=== PATIENT | female | born 1950 | race Hispanic/Latino ===

== ENCOUNTER → 2018-03-15 | Outpatient (CLI) | payer OTHER | END | disposition home or self-care (01) | LOC: OIH 13:03 | PROVIDERS: ATTEND Psychiatry & Neurology Neurology | DX: M50.321 Other cervical disc degeneration at C4-C5 level (principal); M47.892 Other spondylosis, cervical region | CPT/HCPCS: 72040 ==

== ENCOUNTER → 2025-05-07 | Outpatient (CLI) | payer OTHER, MEDICARE ==
--- NOTE | 2025-05-08 14:16 | HMCIMG ---
EXAM: MR Lumbar Spine Without Intravenous Contrast. CLINICAL HISTORY: Pain. TECHNIQUE: Magnetic resonance images of the lumbar spine in multiple planes. CONTRAST: None. COMPARISON: None. FINDINGS: For this examination, spinal levels were labeled assuming five non-rib bearing, lumbar-type vertebrae with the inferior labeled L5. No acute fracture. Normal lordotic curvature. Mild levoscoliosis. Normal vertebral body heights. Normal marrow signal of the vertebrae. Moderate lumbar spondylosis with multilevel marginal osteophytes, facet arthropathy, ligamentum flavum hypertrophy, disc desiccation and mild degenerative disc space reduction, most pronounced at L5-S1. Type I endplate changes at L3-L4. Conus medullaris terminates at the T12-L1 level. No abnormal epidural masses. The surrounding soft tissues are unremarkable. Individual spinal levels are described as follows: T12-L1: No disc bulge or herniation. No neural foraminal, lateral recess or spinal canal stenosis. L1-L2: 1-2 mm postero-central disc protrusion. No neural foraminal, lateral recess or spinal canal stenosis. L2-L3: 3 mm diffuse disc bulge. Mild bilateral lateral recess and neural foraminal stenosis. No spinal canal stenosis. Bilateral traversing nerve root impingement. L3-L4: 4 mm diffuse disc bulge and 4 mm right paracentral disc protrusion causing thecal sac indentation. Bilateral ligamentum flavum hypertrophy. Moderate right and mild left lateral recess stenosis. No neural foraminal or spinal canal stenosis. Bilateral traversing nerve root impingement. L4-L5: 5 mm diffuse disc bulge. Bilateral ligamentum flavum hypertrophy. Moderate bilateral lateral recess and mild bilateral neural foraminal stenosis. Mild spinal canal stenosis. Bilateral traversing nerve root impingement. L5-S1: 4 mm diffuse disc bulge with 4 mm left paracentral disc protrusion with small extruded disc material caudally and cranially. Mild right and moderate left lateral recess and neural foraminal stenosis. No spinal canal stenosis. Left S1 traversing and left S1 exiting nerve root impingement. IMPRESSION: Moderate lumbar spondylosis with multilevel marginal osteophytes, facet arthropathy, ligamentum flavum hypertrophy, disc desiccation and mild degenerative disc space reduction, most pronounced at L5-S1. Type I endplate changes at L3-L4. Mild levoscoliosis. Diffuse disc bulges from L2-L3 through L5-S1. 1-2 mm postero-central disc protrusion at L1-L2. 4 mm right paracentral disc protrusion at L3-L4. 4 mm left paracentral disc protrusion with small extruded disc material caudally and cranially. Mild bilateral lateral recess and neural foraminal stenosis at L2-L3 with bilateral traversing nerve root impingement. Moderate right and mild left lateral recess stenosis at L3-L4 with bilateral traversing nerve root impingement. Moderate bilateral lateral recess and mild neural foraminal stenosis at L4-L5 with mild spinal canal stenosis and bilateral traversing nerve root impingement. Mild right and moderate left lateral recess and neural foraminal stenosis at L5-S1 with left S1 traversing and left S1 exiting nerve root impingement. [facility]
== END | disposition home or self-care (01) ==
LOC: RAH 08:17
PROVIDERS: ATTEND Family Medicine
DX: M47.817 Spondylosis without myelopathy or radiculopathy, lumbosacral region (principal); M51.379 Other intervertebral disc degeneration, lumbosacral region without mention of lumbar back pain or lower extremity pain; M51.27 Other intervertebral disc displacement, lumbosacral region; M48.07 Spinal stenosis, lumbosacral region; M54.32 Sciatica, left side; M41.86 Other forms of scoliosis, lumbar region; M25.78 Osteophyte, vertebrae
CPT/HCPCS: 72148

== ENCOUNTER 2025-05-12 23:29 | Emergency (ER) | payer OTHER, MEDICARE ==
[~2025-05-12] VITALS: Ht 152.4 cm; Wt 52.2 kg
--- NOTE | 2025-05-12 23:40 | NUR ---
PT CARE ASSUMED AT THIS TIME
--- NOTE | 2025-05-12 23:53 | ERN ---
General Chief Complaint: Lower Extremity Pain/Injury Stated Complaint: LEFT LEG PAIN Time Seen by MD: 23:34 Source: patient History of Present Illness Initial Comments 74-year-old female with known history of sciatica. She is undergoing physical therapy right now but she feels it is not helping. She comes in with pain down her left leg as well as mild weakness. The pain is not being controlled by her home medications. She has tried Tylenol with codeine Percocets and ibuprofen and they do not control her pain. She says she has numbness along her left lateral thigh and left lateral toes. She is continent of stool and urine. She comes in with a an MRI report. She is here because her pain is simply too much and she can not walk Allergies: Coded Allergies: iodine (Unverified Allergy, Unknown, 05/12/25) Past Medical History Past Medical History: High Cholesterol, Hypertension, Other Medical History Other: SCIATIC Past Surgical History: Hysterectomy, Cholecystectomy Constitutional: (-) chills, (-) diaphoresis, (-) fever, (-) malaise, (-) weakness, (-) other documentation EENTM: (-) eye pain, (-) blurred vision, (-) tearing, (-) double vision, (-) ear pain, (-) ear discharge, (-) nose pain, (-) nose congestion, (-) throat pain, (-) Throat swelling, (-) mouth pain, (-) tooth pain, (-) mouth swelling, (-) other documentation Respiratory: (-) cough, (-) orthopnea, (-) short of breath, (-) stridor, (-) wheezing, (-) other documentation Cardiovascular: (-) chest pain, (-) edema, (-) palpitations, (-) syncope, (-) dyspnea on exertion, (-) other documentation Gastrointestinal/Abdominal: (-) nausea, (-) vomiting, (-) diarrhea, (-) abdominal pain, (-) abdominal distention, (-) constipation, (-) rectal bleeding, (-) dark stool/melena, (-) other documentation Musculoskeletal: (-) Neck pain, (-) back pain, (-) Flank Pain, (-) joint pain, (-) joint swelling, (-) muscle pain, (-) muscle stiffness, (-) gout, (-) other documentation Neuro: (-) altered mental status, (-) headache, (-) syncope, (-) paralysis, (-) numbness, (-) seizure, (-) pre-existing deficit, (-) tremors, (-) weakness, (-) dizziness, (-) slurred speech, (-) vertigo, (-) other documentation Physical Exam Orientation: (+) oriented x 3 Head/Face Trauma: No Eye: bilateral eye normal inspection, bilateral eye PERRL, bilateral eye EOMI Ear, Nose, Throat: (+) hearing grossly normal, (+) normal ENT inspection, (+) moist mucous membraine Neck: (+) normal inspection, (+) supple, (+) full range of motion Respiratory: (+) chest non-tender, (+) lungs clear, (+) well ventilated Heart: (+) regular Extremities: (+) normal inspection, (+) normal capillary refill Extremities Comment Patient has good strength in her left thigh and leg. She can not raise her leg above approximately 30 without having a lot of pain in her leg. The pain is worse on flexing her great toe. MDM I see no reason not to doubt that the patient is suffering from sciatica. Her M RI report shows moderate lumbar spondylosis and multilayer marginal osteophytes facet arthropathy ligamentum flavum of an hypertrophy and mild degenerative disc space reduction worse at L5-S1. I will give her IM dose of nor flex and Kenalog as well as an IM dose of Toradol. Patient's pain is much improved with the injections. She has an appointment on Wednesday with a physician, she is not sure who the physician is. I have told her that she needs to find a neurosurgeon who is willing to look at the MRI and CT scans and decide whether she is a good candidate for surgical repair. ED Course Orders Procedure Category Date Status Time Hydralazine 20mg Inj PHA 05/13/25 Complete (Apresoline 20mg In 00:30 Orphenadrine Citrate PHA 05/13/25 Complete (Norflex) 01:00 Triamcinolone Acet PHA 05/13/25 Complete 40mg/Ml 1ml (Kenalog 01:00 Ketorolac 60mg/2ml PHA 05/13/25 Complete (Toradol 60mg/2ml) 01:00 Current Medications Medications (Trade) Dose Ordered Sig/Yvonne Route PRN Reason Start Time Stop Time Status Last Admin Dose Admin Hydralazine HCl (APRESOLine 20MG INJ) 20 mg ONCE ONCE IV 05/13/25 00:30 05/13/25 00:09 DC Ketorolac Tromethamine (toRADol 60MG/ 2ML) 60 mg ONCE ONCE IM 05/13/25 01:00 05/13/25 01:01 DC 05/13/25 00:55 Orphenadrine Citrate (Norflex) 60 mg ONCE ONCE IM 05/13/25 01:00 05/13/25 01:01 DC 05/13/25 00:53 Triamcinolone Acetonide (Kenalog 40) 40 mg ONCE ONCE IM 05/13/25 01:00 05/13/25 01:01 DC 05/13/25 00:55 Vital Signs Date Time Temp Pulse Resp B/P (MAP) Pulse Ox O2 Delivery O2 Flow Rate FiO2 05/13/25 00:02 98.1 60 59 152/56 97 Room Air* 0 21 05/12/25 23:30 98.1 70 18 170/64 97 Room Air DX & DISP Disposition: Discharge Departure Condition: Stable Additional Instructions: Please arrange to see a neurosurgeon or a spine surgeon. They can look at the scans to decide if you would be a candidate for surgical repair and if that repair would improve your symptoms. Referrals: REBECA PRAKASH MD (PCP) VICTOR MANUEL FORREST MD May 12, 2025 23:53
[2025-05-13] MEDS: ORPHENADRINE 60MG/2ML IM ONE (00:53)
[2025-05-13] MEDS: TRIAMCINOLONE ACETONIDE 40 MG/ML 1ML VIAL IM ONE (00:55)
[2025-05-13 02:37] VITALS: BP 162/51; PULSE 60; RESP 16; TEMP 98; O2SAT 97
--- NOTE | 2025-05-13 02:39 | NUR ---
AMBULATION ASSESSMENT UPON DISCHARGE PT AMBULATED TO WHEELCHAIR WITH A SLOW AND STEADY GAIT. NO SIGNS OF IMBALANCE.
== END 2025-05-13 02:43 | disposition home or self-care (01) ==
LOC: EDH 23:29
DX: M79.605 Pain in left leg (principal); R53.1 Weakness; E78.00 Pure hypercholesterolemia, unspecified; I10 Essential (primary) hypertension; Z88.8 Allergy status to other drugs, medicaments and biological substances; Z90.49 Acquired absence of other specified parts of digestive tract; Z90.710 Acquired absence of both cervix and uterus
CPT/HCPCS: 99284; 96372 ×3; J1885; J3301; J2360

== ENCOUNTER 2025-06-29 17:29 | Emergency (ER) | payer OTHER, MEDICARE ==
[~2025-06-29] VITALS: Ht 152.4 cm; Wt 49.9 kg
--- NOTE | 2025-06-29 18:01 | EKG ---
[facility] Test Date: 2025-06-29 Test Time: 17:56:43 Pat Name: KIM DEY Department: ED Room: Gender: F Electronics Lead: [id number] : 1950 Requested By: MIREILLE COBB Order Number: [id number] Reading MD: Arian Lopes Measurements Intervals [place] Rate: 66 P: 31 [place]: 172 QRS: 46 QRSD: 90 T: 50 QT: 412 QTc: 433 Interpretive Statements Sinus rhythm Compared to ECG 09/09/2017 07:49:16 No significant changes Electronically Signed On 06-30-2025 12:07:28 CDT by Arian Lopes Please click the below link to view image of tracing.
[2025-06-29] MEDS: 0.9%NACL 1000ML 1,000 ML IV ONE (18:12)
[2025-06-29 18:14] LABS: APPEARANCE,URINE CLOUDY (CLEAR); GLUCOSE, URINE (UA) NEGATIVE (NEGATIVE); LEUKOCYTE ESTERASE ,URINE NEGATIVE Leu/uL (NEGATIVE); NITRATE,URINE NEGATIVE (NEGATIVE); OCCULT BLOOD,URINE SMALL (NEGATIVE)
[2025-06-29 18:15] LABS: ADD UA MICROSCOPIC YES
[2025-06-29 18:18] LABS: SQUAMOUS EPITHELIAL CELL,UR RARE /HPF (0-2)
[2025-06-29 18:29] LABS: IMMATURE GRANULOCYTE ABSOLUTE 0.05 K/uL (0-1); NUCLEATED RED BLOOD CELLS 0.0 % (0.0-0.19); PLATELET COUNT (AUTO) 178 K/uL (130-400); RED BLOOD CELL COUNT(AUTO) 3.53 MIL/uL (4.00-5.50); RED CELL DISTRIBUTION WIDTH 13.2 % (11.0-15.5); WHITE BLOOD COUNT (AUTO) 9.1 K/uL (4.8-10.8)
[2025-06-29 18:50] LABS: CREATINE KINASE, TOTAL 94.0 U/L (21-232); CREATININE 0.5 mg/dL (0.5-1.0); GLOMERULAR FILTR. RATE CALC 98.0 mL/min (>90); GLUCOSE,RANDOM 99.0 mg/dL (70-105); SODIUM SERUM 138.0 mmol/L (136-145); UREA NITROGEN, BLOOD 21.0 mg/dL (7-18)
--- NOTE | 2025-06-29 19:02 | ERN ---
ED Note History of Present Illness Stated Complaint: NAUSEA, VOMITING Chief Complaint: Nausea,Vomiting,Diarrhea Time Seen by MD: 17:31 Time Seen by Midlevel: 17:31 Dictation: The patient is a 75-year-old female with a history of hypertension, cholecyst ectomy who presents to the emergency department with complaints of dizziness, nausea nonbloody vomiting onset 2 hours prior to arrival. Patient just stress sensation of room spinning and dizziness worse with movement. Patient denies any head trauma, denies any fevers, denies any use of blood thinners, denies any abdominal pain, diarrhea or constipation. Allergies: Coded Allergies: iodine (Unverified Allergy, Unknown, 05/12/25) Past Medical History Past Medical History: High Cholesterol, Hypertension, Other Additional Past Medical Hx: SCIATIC Surgical History: Hysterectomy, Cholecystectomy RN Note Reviewed/Agreed w/PFSH: Yes Review of System Dictation Constitutional: Negative for fever,chills, and weight loss Eyes: Negative for injury, pain,redness, and discharge ENT: Negative for injury,pain or swelling Cardiovascular: Negative for chest pain, palpitations, and edema Respiratory: Negative for shortness of breath, cough, and wheezing, Abdomen/GI: Negative for abdominal pain, diarrhea, and constipation positive for nausea and vomiting Back: Negative for injury and pain : Negative for injury, bleeding and discharge MS/Extremity: Negative for injury and deformity Skin: Negative for rash, and discoloration Neuro: Negative for headache, weakness, numbness, tingling, and seizure positive for dizziness Psych: Negative for suicide ideation, homicidal ideation, and hallucinations Initial Vital Sign VS Vital Signs Date Time Temp Pulse Resp B/P (MAP) Pulse Ox O2 Delivery O2 Flow Rate FiO2 06/29/25 17:30 97.7 68 18 163/58 98 Room Air 06/29/25 17:37 0 21 Physical Exam Dictation Vital Signs reviewed General Appearance: Alert, oriented x 3, no acute distress, well developed, nourished. Head and Face: non-traumatic. Eyes: PERRL, pink conjunctivas, eyelid no trauma, anterior chamber with arcus senilis. Ears: Pinnas intact and no signs of trauma or erythema ear canals clear and no discharge TM no erythema Nose: No discharge, no bleeding. Oropharynx: Mouth normal, tongue pink. pharynx clear,no erythema, tonsils no exudates, no abscesses noted, mucous membrane moist Neck: Supple, non-tender, no thyromegaly, no masses, no JVD, no bruits Breast:Deferred Chest:No tenderness, no crepitus, no paradoxical movement, no retractions Lungs:Clear, well-ventilated, symmetric, no rales, no wheezing, no rhonchi, no stridor, good breath sounds bilaterally Heart: Regular rate, regular rhythm, no murmur, no gallops Vascular: no peripheral edema, Abdomen: Soft, positive bowel sounds, nondistended, no guarding, nontender, no rebound, no masses no hepatomegaly, no splenomegaly, no Townsend's sign, no hernias. Rectal: Deferred Genital: Deferred Neurological: Normal speech, motor function intact, sensory function intact Musculoskeletal: Neck nontender, full range of motion, back nontender, full ran ge of motion, Extremities: nontender, full range of motion Skin: Color pink, dry, no turgor, no rash, no lacerations, no abrasions, no contusions. Lymphatic: Deferred Results (Laboratory/Radiology) Laboratory/Radiology Laboratory Tests Test 06/29/25 17:38 06/29/25 18:20 Urine Color LIGHT-YELLOW (YELLOW) Urine Appearance CLOUDY (CLEAR) H Urine pH 7.0 (5.0-8.0) Urine Specific [place] 1.014 (1.001-1.031) Urine Protein NEGATIVE mg/dL (NEGATIVE) Urine Glucose (UA) NEGATIVE mg/dL (NEGATIVE) Urine Ketones NEGATIVE mg/dL (NEGATIVE) Urine Occult Blood SMALL (NEGATIVE) H Urine Nitrate NEGATIVE (NEGATIVE) Urine Bilirubin NEGATIVE mg/dL (NEGATIVE) Urine Urobilinogen 0.2 mg/dL (0.2-1.0) Urine Leukocyte Esterase NEGATIVE [place]/uL Urine RBC 6-10 /HPF (0-1) H Urine WBC 2-5 /HPF (0-1) H Urine Squamous Epithelial Cells RARE /HPF (0-2) Urine Bacteria RARE /HPF (None Seen) White Blood Count 9.1 K/uL (4.8-10.8) Red Blood Count 3.53 MIL/uL (4.00-5.50) L Hemoglobin 11.7 g/dL (12.0-16.0) L Hematocrit 32.7 % (36-48) L Mean Corpuscular Volume 92.6 fL (79-99) Mean Corpuscular Hemoglobin 33.1 pg (27.0-33.0) H Mean Corpuscular Hemoglobin Concent 35.8 g/dL (32.0-36.0) Red Cell Distribution Width 13.2 % (11.0-15.5) Platelet Count 178 K/uL (130-400) Mean Platelet Volume 9.6 fL (7.5-10.5) Immature Granulocyte % (Auto) 0.5 % (0-1) Neutrophils (%) (Auto) 69.5 % (40.0-77.0) Lymphocytes (%) (Auto) 21.3 % (21.0-51.0) Monocytes (%) (Auto) 8.0 % (3.0-13.0) Eosinophils (%) (Auto) 0.4 % (0.0-8.0) Basophils (%) (Auto) 0.3 % (0.0-5.0) Neutrophils # (Auto) 6.3 K/uL (1.8-7.7) Lymphocytes # (Auto) 1.9 K/uL (1.0-4.8) Monocytes # (Auto) 0.7 K/uL (0.1-1.0) Eosinophils # (Auto) 0.04 K/uL (0.00-0.70) Basophils # (Auto) 0.03 K/uL (0.00-0.20) Absolute Immature Granulocyte (auto 0.05 K/uL (0-1) Nucleated Red Blood Cells 0.0 % (0.0-0.19) Sodium Level 138 mmol/L (136-145) Potassium Level 3.0 mmol/L (3.5-5.1) *L Chloride Level 108 mmol/L (101-111) Carbon Dioxide Level 26 mmol/L (21-32) Blood Urea Nitrogen 21 mg/dL (7-18) H Creatinine 0.5 mg/dL (0.5-1.0) Glomerular Filtration Rate Calc 98 mL/min (>90) Random Glucose 99 mg/dL (70-105) Total Calcium 7.3 mg/dL (8.5-10.1) L Magnesium Level 1.80 mg/dL (1.80-2.40) Total Creatine Kinase 94 U/L (21-232) # Troponin I High Sensitivity < 4 ng/L (4-50) L REASON: dizzy ORDERING PHYSICIAN: MIREILLE COBB GYPSUM CALCINER PROCEDURE: HEAD WO - CT HEAD/BRAIN W/O CONTRAST EXAM: CT Head Without IV contrast. CLINICAL HISTORY: dizzy TECHNIQUE: Axial computed tomography images of the head/brain without intravenous contrast. COMPARISON: None provided. FINDINGS: BRAIN: No evidence of acute hemorrhage. No mass lesion. No CT evidence for acute territorial infarct. No midline shift or extra-axial collections. VENTRICLES: No hydrocephalus. ORBITS: The orbits are unremarkable. SINUSES AND MASTOIDS: The paranasal sinuses and mastoid air cells are clear. BONES: No fracture. SOFT TISSUES: Unremarkable. IMPRESSION: No acute intracranial abnormality. /[place] REASON: dizzy ORDERING PHYSICIAN: MIREILLE COBB GYPSUM CALCINER PROCEDURE: CXR1VW - CHEST 1VW EXAM: CR Chest, 1 View. CLINICAL HISTORY: dizzy COMPARISON: None provided. FINDINGS: LUNGS: The lungs show no infiltrate or other acute finding. PLEURAL SPACES: No evidence of pleural effusion or pneumothorax. MEDIASTINUM: The cardiomediastinal silhouette is within normal limits. BONES: No acute osseous abnormality. IMPRESSION: No acute cardiopulmonary pathology is evident. /[place] Labs Reviewed?: Yes EKG: (+) rhythm (Rhythm) EKG Comment: Date:06/29/2025 Time:1756 Ventricular rate:66 VT interval:172 QRS duration:90 QT/QTc:412/433 EKG interpretation: Sinus rhythm Reviewed by ED Attending no STEMI ED Course ED Course Orders Procedure Category Date Status Time Cbc With Differential LAB 06/29/25 Complete 17:43 Chest 1vw RAD 06/29/25 Resulted 17:43 12 Lead Ekg Tracing- EKG 06/29/25 Complete Technical 17:43 0.9%Nacl 1000ml (Ns PHA 06/29/25 Complete 1000ml) 18:00 Magnesium LAB 06/29/25 Complete 17:43 Creatine Kinase, Total LAB 06/29/25 Complete 17:43 Troponin I High LAB 06/29/25 Complete Sensitivity 17:43 Basic Metabolic Panel LAB 06/29/25 Complete 17:43 Ct Head/Brain W/O CT 06/29/25 Resulted Contrast 17:43 Orthostatic Vital CPOE 06/29/25 Transmitted Signs 17:43 Ondansetron 4mg Inj PHA 06/29/25 Complete (Zofran 4mg Inj) 18:00 Meclizine Hcl 25 Mg PHA 06/29/25 Complete (Antivert 25 Mg) 18:00 Urinalysis Profile LAB 06/29/25 Complete 17:55 Potassium Bicarb/Cit PHA 06/29/25 Complete Ac 25meq (K-Lyte Ta 19:00 Current Medications Medications (Trade) Dose Ordered Sig/Yvonne Route PRN Reason Start Time Stop Time Status Last Admin Dose Admin Meclizine HCl (ANTIvert 25 mg) 25 mg ONCE ONCE PO 06/29/25 18:00 06/29/25 18:01 DC 06/29/25 18:13 Ondansetron HCl (zoFRAN 4MG INJ) 4 mg ONCE ONCE IVP 06/29/25 18:00 06/29/25 18:01 DC 06/29/25 18:12 Potassium Bicarbonate (K-Lyte Tablet Eff 25 Meq Tablet.eff) 50 meq ONCE ONCE PO 06/29/25 19:00 06/29/25 19:23 DC 06/29/25 19:32 Sodium Chloride 1,000 ml @ 0 mls/hr ONCE ONCE IV 06/29/25 18:00 06/29/25 18:01 DC 06/29/25 18:12 Vital Signs Date Time Temp Pulse Resp B/P (MAP) Pulse Ox O2 Delivery O2 Flow Rate FiO2 06/29/25 19:51 65 18 173/69 98 Room Air* 0 06/29/25 19:48 65 18 181/76 98 Room Air* 0 06/29/25 19:45 65 18 186/70 98 Room Air* 0 06/29/25 17:37 98.1 65 18 131/74 97 Room Air* 0 06/29/25 17:30 97.7 68 18 163/58 98 Room Air Medical Decision Making MDM The patient is a 75-year-old female with a history of hypertension, cholecystect chantel who presents to the emergency department with complaints of dizziness, nausea nonbloody vomiting onset 2 hours prior to arrival. Patient just stress sensation of room spinning and dizziness worse with movement. Patient denies any head trauma, denies any fevers, denies any use of blood thinners, denies any abdominal pain, diarrhea or constipation. CBC showed no leukocytosis, mild normocytic anemia, chemistry showed hypokalemia, normal renal function, negative troponin, urinalysis negative for leukocyte esterase, nitrites. CT head showed no acute pathology. Chest x-ray showed no acute pathology. EKG was normal sinus rhythm. Patient was reassessed. Patient reports she feels much better. Was able to tolerated p.o. intake. Patient with negative orthostatics vital signs. On physical exam patient is in no acute distress, nontoxic appearance, stable vital signs. Labs and imaging discussed with the patient who agrees to be discharged and follow up with PCP. Differential diagnosis: Vertigo, intracerebral hemorrhage, orthostatic hypotension, dehydration Need for hospitalization: Patient does not meet criteria for hospitalization. There are no social concerns with this patient. DX & DISP Disposition: Discharge Departure Impression: Primary Impression: Vertigo Additional Impression: Hypokalemia Condition: Stable Scripts Meclizine HCl (Meclizine HCl) 25 Mg Tablet 25 MG PO TID for vertigo, #30 TAB 0 Refills Prov: MIREILLE COBB GYPSUM CALCINER 06/29/25 Additional Instructions: Your labs were unremarkable except for your low potassium which we have replaced. Your CT head was normal, your chest x-ray was normal. Your symptoms are consistent with vertigo. Please take your medications as prescribed. Follow up with your primary doctor in 1-2 days. If anything worsens please return to ER. FOLLOW-UP WITH PRIMARY CARE PROVIDER IN 1 TO 2 DAYS. TAKE MEDICATIONS DIRECTED HERE IN THE EMERGENCY ROOM. OKAY TO CONTINUE HOME MEDICATIONS UNLESS OTHERWISE DISCUSSED DURING YOUR VISIT IN THE EMERGENCY ROOM TODAY. RETURN TO YOUR NEAREST EMERGENCY ROOM IF SYMPTOMS WORSEN OR IF THERE IS NO IMPROVEMENT. CALL 911 IF YOU NEED IMMEDIATE ASSISTANCE. TAKE TYLENOL [id number] NEEDED AND IF NO CONTRAINDICATIONS ARE PRESENT. INCREASE ORAL HYDRATION. A WOUND CULTURE OR URINE CULTURE WAS ORDERED HERE IN THE EMERGENCY ROOM DEPARTMENT PLEASE FOLLOW-UP WITH PRIMARY CARE PROVIDER AND ADVISE THEM TO GET REPEAT PORTS FROM OUR FACILITY. IF YOU HAD ANY EFRAIN WRAP/SPLINTS THAT WERE APPLIED HERE, PLEASE DO NOT REMOVE THEM UNTIL YOU SEE YOUR PRIMARY CARE OR SPECIALTY. Referrals: REBECA PRAKASH MD (PCP) Time of Disposition: 20:07 I have reviewed the case, and I agree with, Diagnosis and Plan MIREILLE COBB [facility] Jun 29, 2025 19:02
--- NOTE | 2025-06-29 19:25 | HMCIMG ---
EXAM: CT Head Without IV contrast. CLINICAL HISTORY: dizzy TECHNIQUE: Axial computed tomography images of the head/brain without intravenous contrast. COMPARISON: None provided. FINDINGS: BRAIN: No evidence of acute hemorrhage. No mass lesion. No CT evidence for acute territorial infarct. No midline shift or extra-axial collections. VENTRICLES: No hydrocephalus. ORBITS: The orbits are unremarkable. SINUSES AND MASTOIDS: The paranasal sinuses and mastoid air cells are clear. BONES: No fracture. SOFT TISSUES: Unremarkable. IMPRESSION: No acute intracranial abnormality. /[place]
--- NOTE | 2025-06-29 19:28 | HMCIMG ---
EXAM: CR Chest, 1 View. CLINICAL HISTORY: dizzy COMPARISON: None provided. FINDINGS: LUNGS: The lungs show no infiltrate or other acute finding. PLEURAL SPACES: No evidence of pleural effusion or pneumothorax. MEDIASTINUM: The cardiomediastinal silhouette is within normal limits. BONES: No acute osseous abnormality. IMPRESSION: No acute cardiopulmonary pathology is evident. /[place]
[2025-06-29] MEDS ORDERED: MECL-302 PO (20:08)
[2025-06-29 20:34] VITALS: BP 150/61; PULSE 65; RESP 18; TEMP 98.1; O2SAT 98
== END 2025-06-29 20:35 | disposition home or self-care (01) ==
LOC: EDH 17:29
DX: R42 Dizziness and giddiness (principal); E87.6 Hypokalemia; R11.2 Nausea with vomiting, unspecified; E78.00 Pure hypercholesterolemia, unspecified; I10 Essential (primary) hypertension; Z91.041 Radiographic dye allergy status; Z90.49 Acquired absence of other specified parts of digestive tract; Z90.710 Acquired absence of both cervix and uterus; Z88.8 Allergy status to other drugs, medicaments and biological substances
CPT/HCPCS: 99285; 96374; 70450; 71045; 96361 ×2; 96375; 82550; 83735; 84484; 80048; 85025; 81001; 36415; 93005; J1885; J7030; J2405

== ENCOUNTER 2025-09-15 16:14 | Emergency (ER) | payer OTHER, MEDICARE ==
[~2025-09-15] VITALS: Ht 152.4 cm; Wt 49.9 kg
[~2025-09-15 16:14] MED LIST: MECL-302 PO
[2025-09-15 17:13] LABS: IMMATURE GRANULOCYTE ABSOLUTE 0.37 K/uL (0-1); NUCLEATED RED BLOOD CELLS 0.0 % (0.0-0.19); PLATELET COUNT (AUTO) 205 K/uL (130-400); RED BLOOD CELL COUNT(AUTO) 4.16 MIL/uL (4.00-5.50); RED CELL DISTRIBUTION WIDTH 11.9 % (11.0-15.5); WHITE BLOOD COUNT (AUTO) 12.3 K/uL (4.8-10.8)
--- NOTE | 2025-09-15 17:14 | EKG ---
[facility] Test Date: 2025-09-15 Test Time: 17:05:57 Pat Name: KIM DEY Department: ED Room: Gender: F Yard Associate: 08 : 1950 Requested By: MAGALY MARION Order Number: [id number] Reading MD: Eduardo Gatica Measurements Intervals [place] Rate: 66 P: 47 [place]: 171 QRS: 53 QRSD: 84 T: 56 QT: 430 QTc: 450 Interpretive Statements Sinus rhythm Compared to ECG 06/29/2025 17:56:43 No significant changes Electronically Signed On 09-16-2025 09:29:38 AGRONOMY MANAGER by Eduardo Gatica Please click the below link to view image of tracing.
--- NOTE | 2025-09-15 17:18 | HMCIMG ---
EXAM: CT Head Without IV contrast. CLINICAL HISTORY: dizziness/n/v TECHNIQUE: Axial computed tomography images of the head/brain without intravenous contrast. COMPARISON: None provided. FINDINGS: BRAIN: No evidence of acute hemorrhage. No mass lesion. No CT evidence for acute territorial infarct. No midline shift or extra-axial collections. VENTRICLES: No hydrocephalus. ORBITS: The orbits are unremarkable. SINUSES AND MASTOIDS: The paranasal sinuses and mastoid air cells are clear. BONES: No fracture. SOFT TISSUES: Unremarkable. IMPRESSION: No acute intracranial abnormality. /[place]
[2025-09-15 17:24] LABS: CREATININE 0.9 mg/dL (0.5-1.0); GLOMERULAR FILTR. RATE CALC 67.0 mL/min (>90); GLUCOSE,RANDOM 155.0 mg/dL (70-105); SODIUM SERUM 137.0 mmol/L (136-145); UREA NITROGEN, BLOOD 23.0 mg/dL (7-18)
[2025-09-15 17:29] LABS: ASPARTATE AMINOTRANSFERASE 24.0 U/L (10-37); TOTAL PROTEIN, SERUM 7.1 g/dL (6.0-8.3)
[2025-09-15] MEDS: FAMOTIDINE 20MG VIAL IV ONE (17:33)
[2025-09-15] MEDS: 0.9%NACL 1000ML 1,000 ML IV STA (17:33)
--- NOTE | 2025-09-15 17:57 | ERN ---
ED Note History of Present Illness Stated Complaint: BACK PAIN Chief Complaint: Dizzy/Light Headed Time Seen by MD: 16:27 Time Seen by Midlevel: 16:30 Dictation: 75-year-old female brought in for evaluation. Patient states he feels dizzy, nauseated and then having epigastric pain that radiates to her back. Patient has also stating she is did not take her 2nd dose of her metoprolol for high blood pressure. Patient states she has a history of vertigo, took her medication for the vertigo but states she probably threw it up. NIH A0 on my initial assessment. Allergies: Coded Allergies: iodine (Unverified Allergy, Unknown, 05/12/25) Home Meds Active Scripts Meclizine HCl (Meclizine HCl) 25 Mg Tablet, 25 MG PO TID for vertigo, #30 TAB 0 Refills Prov:MIREILLE COBB [employer]PERVISOR 06/29/25 Past Medical History Past Medical History: High Cholesterol, Hypertension, Other Additional Past Medical Hx: SCIATIC Surgical History: Hysterectomy, Cholecystectomy Review of System Dictation Constitutional: Negative for fever,chills, and weight loss Eyes: Negative for injury, pain,redness, and discharge ENT: Negative for injury,pain or swelling Cardiovascular: Negative for chest pain, palpitations, and edema Respiratory: Negative for shortness of breath, cough, and wheezing, Abdomen/GI: Negative for abdominal pain, nausea, vomiting, diarrhea, and constipation Back: Negative for injury and pain : Negative for injury, bleeding and discharge MS/Extremity: Negative for injury and deformity Skin: Negative for rash, and discoloration Neuro: Negative for headache, weakness, numbness, tingling, and seizure Psych: Negative for suicide ideation, homicidal ideation, and hallucinations Review of Systems: was completed Initial Vital Sign VS Vital Signs Date Time Temp Pulse Resp B/P (MAP) Pulse Ox O2 Delivery O2 Flow Rate FiO2 09/15/25 16:15 98.1 78 20 178/60 98 Room Air 09/15/25 16:54 0 21 Physical Exam Dictation General: awake, alert, NAD Head/Face: Normocephalic, atraumatic Eyes: PERRL, EOMI, vision at baseline ENT: oral cavity clear, TMs clear, no signs of infection Neck: Trachea midline, supple, no nuchal rigidity Cardiovascular: RRR, normal S1/S2, No MRGs, no JVD Respiratory: CTAB, no respiratory distress, No rales or wheezes Abdomen: Soft, non-tender, non-distended, normal bowel sounds, no guarding or rebound. Skin: Warm, dry, normal turgor, no rash MS/Extremity: Pulses equal, no cyanosis, neurovascular intact, FROM Neuro: COAx4, GCS 15, strength 5/5, CN 2-12 intact, normal cerebellar exam, normal gait, Psych: Normal behavior, mood, and affect normal Results (Laboratory/Radiology) Laboratory/Radiology Laboratory Tests Test 09/15/25 16:55 09/15/25 18:11 White Blood Count 12.3 K/uL (4.8-10.8) H Red Blood Count 4.16 MIL/uL (4.00-5.50) Hemoglobin 13.5 g/dL (12.0-16.0) Hematocrit 38.3 % (36-48) Mean Corpuscular Volume 92.1 fL (79-99) Mean Corpuscular Hemoglobin 32.5 pg (27.0-33.0) Mean Corpuscular Hemoglobin Concent 35.2 g/dL (32.0-36.0) Red Cell Distribution Width 11.9 % (11.0-15.5) Platelet Count 205 K/uL (130-400) Mean Platelet Volume 9.8 fL (7.5-10.5) Immature Granulocyte % (Auto) 3.0 % (0-1) H Neutrophils (%) (Auto) 63.2 % (40.0-77.0) Lymphocytes (%) (Auto) 26.9 % (21.0-51.0) Monocytes (%) (Auto) 5.6 % (3.0-13.0) Eosinophils (%) (Auto) 0.7 % (0.0-8.0) Basophils (%) (Auto) 0.6 % (0.0-5.0) Neutrophils # (Auto) 7.8 K/uL (1.8-7.7) H Lymphocytes # (Auto) 3.3 K/uL (1.0-4.8) Monocytes # (Auto) 0.7 K/uL (0.1-1.0) Eosinophils # (Auto) 0.09 K/uL (0.00-0.70) Basophils # (Auto) 0.07 K/uL (0.00-0.20) Absolute Immature Granulocyte (auto 0.37 K/uL (0-1) Nucleated Red Blood Cells 0.0 % (0.0-0.19) Sodium Level 137 mmol/L (136-145) Potassium Level 3.1 mmol/L (3.5-5.1) L Chloride Level 100 mmol/L (101-111) L Carbon Dioxide Level 25 mmol/L (21-32) Blood Urea Nitrogen 23 mg/dL (7-18) H Creatinine 0.9 mg/dL (0.5-1.0) Glomerular Filtration Rate Calc 67 mL/min (>90) Random Glucose 155 mg/dL (70-105) H Total Calcium 9.2 mg/dL (8.5-10.1) Total Bilirubin 0.3 mg/dL (0.2-1.0) Direct Bilirubin 0.1 mg/dL (0.0-0.3) Aspartate Amino Transf (AST/SGOT) 24 U/L (10-37) Alanine Aminotransferase (ALT/SGPT) 30 U/L (12-78) Alkaline Phosphatase 96 U/L (50-136) Troponin I High Sensitivity 5 ng/L (4-50) Total Protein 7.1 g/dL (6.0-8.3) Albumin 3.7 g/dL (3.5-5.0) Lipase 52 U/L (16-77) Urine Color STRAW (YELLOW) Urine Appearance CLEAR (CLEAR) Urine pH 8.0 (5.0-8.0) Urine Specific [place] 1.008 (1.001-1.031) Urine Protein NEGATIVE mg/dL (NEGATIVE) Urine Glucose (UA) NEGATIVE mg/dL (NEGATIVE) Urine Ketones NEGATIVE mg/dL (NEGATIVE) Urine Occult Blood +- (TRACE) (NEGATIVE) H Urine Nitrate NEGATIVE (NEGATIVE) Urine Bilirubin NEGATIVE mg/dL (NEGATIVE) Urine Urobilinogen 0.2 mg/dL (0.2-1.0) Urine Leukocyte Esterase NEGATIVE [place]/uL Urine RBC 2-5 /HPF (0-1) H Urine WBC 0-1 /HPF (0-1) Urine Bacteria RARE /HPF (None Seen) Labs Reviewed?: Yes EKG Comment: EKGs at 5:05 p.m., sinus rhythm rate 66 CT Scan Comment: [facility] [address] [place] [address] IMAGING REPORT Signed PATIENT: KIM DEY MR#: [id number] : 1950 SEX: F AGE: 75 LOCATION: [facility] ORDER 35 STATUS: REG ER REPORT#: [id number] SERVICE 34 REASON: dizziness/n/v ORDERING PHYSICIAN: MAGALY MARION CNP PROCEDURE: HEAD WO - CT HEAD/BRAIN W/O CONTRAST EXAM: CT Head Without IV contrast. CLINICAL HISTORY: dizziness/n/v TECHNIQUE: Axial computed tomography images of the head/brain without intravenous contrast. COMPARISON: None provided. FINDINGS: BRAIN: No evidence of acute hemorrhage. No mass lesion. No CT evidence for acute territorial infarct. No midline shift or extra-axial collections. VENTRICLES: No hydrocephalus. ORBITS: The orbits are unremarkable. SINUSES AND MASTOIDS: The paranasal sinuses and mastoid air cells are clear. BONES: No fracture. SOFT TISSUES: Unremarkable. IMPRESSION: No acute intracranial abnormality. /[place] DICTATED BY: ALEX OROZCO MD DATE: 09/15/251817 ELECTRONICALLY SIGNED BY: ALEX OROZCO MD DATE: 09/15/251817 ED Course ED Course Orders Procedure Category Date Status Time Cbc With Differential LAB 09/15/25 Complete 16:35 Basic Metabolic Panel LAB 09/15/25 Complete 16:35 Hepatic Function Panel LAB 09/15/25 Complete 16:35 Lipase LAB 09/15/25 Complete 16:35 Urinalysis Profile LAB 09/15/25 Complete 16:35 Troponin I High LAB 09/15/25 Complete Sensitivity 16:35 12 Lead Ekg Tracing- EKG 09/15/25 Complete Technical 16:35 Ct Head/Brain W/O CT 09/15/25 Resulted Contrast 16:35 0.9%Nacl 1000ml (Ns PHA 09/15/25 Complete 1000ml) 16:35 Ondansetron 4mg Inj PHA 09/15/25 Complete (Zofran 4mg Inj) 17:00 Meclizine Hcl 25 Mg PHA 09/15/25 Complete (Antivert 25 Mg) 17:00 Famotidine 20mg Vial PHA 09/15/25 Complete (Pepcid 20mg Vial) 17:00 Ct Abdomen/Pelvis W/O CT 09/15/25 Resulted Contrast 17:15 Hydralazine 20mg Inj PHA 09/15/25 Complete (Apresoline 20mg In 17:43 Potassium Bicarb/Cit PHA 09/15/25 Complete Ac 25meq (K-Lyte Ta 18:30 Current Medications Medications (Trade) Dose Ordered Sig/Yvonne Route PRN Reason Start Time Stop Time Status Last Admin Dose Admin Famotidine (Pepcid 20mg Vial) 20 mg ONCE ONCE IV 09/15/25 17:00 09/15/25 17:01 DC 09/15/25 17:33 Hydralazine HCl (APRESOLine 20MG INJ) 10 mg ONCE ONCE IV 09/15/25 17:43 09/15/25 17:55 DC 09/15/25 18:21 Meclizine HCl (ANTIvert 25 mg) 25 mg ONCE ONCE PO 09/15/25 17:00 09/15/25 17:01 DC 09/15/25 17:32 Ondansetron HCl (zoFRAN 4MG INJ) 4 mg ONCE ONCE IVP 09/15/25 17:00 09/15/25 17:01 DC 09/15/25 17:33 Potassium Bicarbonate (K-Lyte Tablet Eff 25 Meq Tablet.eff) 25 meq ONCE ONCE PO 09/15/25 18:30 09/15/25 18:31 DC 09/15/25 18:42 Sodium Chloride 1,000 ml @ 1,000 mls/hr Q1H STAT IV 09/15/25 16:35 09/15/25 17:34 DC 09/15/25 17:33 Vital Signs Date Time Temp Pulse Resp B/P (MAP) Pulse Ox O2 Delivery O2 Flow Rate FiO2 09/15/25 18:21 68 186/111 09/15/25 17:39 95.9 65 18 191/72 95 Room Air* 0 09/15/25 16:54 95.9 64 18 177/64 97 Room Air* 0 09/15/25 16:15 98.1 78 20 178/60 98 Room Air Medical Decision Making MDM MDM: 75-year-old female brought in for evaluation. Patient states he feels dizzy, nauseated and then having epigastric pain that radiates to her back. Patient has also stating she is did not take her 2nd dose of her metoprolol for high blood pressure. Patient states she has a history of vertigo, took her medication for the vertigo but states she probably threw it up. NIH 0 on my initial assessment. CBC shows white count of 12, this could be related to patient's stress response and dry heaving. No anemia, no thrombocytopenia. Chemistry shows mild hypokalemia potassium of 3.1. Replacement given in the ER. Normal kidney function. No transaminitis. T bili within normal range, lipase you can arrange. Troponin is negative. UA shows no evidence of urinary tract infection. CT scan of the head shows no acute finding. CT scan of the abdomen and pelvis shows no acute intra-abdominal pelvic pathology, mild diverticulosis, mild constipation, moderate thrombo columbar degenerative spondylosis with a multi degenerative disc disease. Reassessment after fluids, meclizine, Pepcid and Zofran patient feels much better. Vital signs have stabilized. Patient will be discharged home to follow up with PCP. Educated on signs and symptoms of when to return back to the ER. Patient verbalized understanding, answered all questions. Differential diagnosis: Critical however dehydration, UTI Rationale: Tests considered and ordered secondary to shared decision making include: Previous outside records reviewed: Old ER visits. Risk of complication and/or morbidity or mortality of patient management: None Medications-Per medication reconciliation Need for hospitalization: Patient does not meet criteria for hospitalization. Need for emergency major/minor surgery: No There are no social concerns with this patient. Prescription drug management Prescriptions will include symptomatic care Patient's prior external medical records from other ER visits were reviewed by me as indicated. Prior testing and results from previous visits were reviewed. Prior tests were taken into account with medical decision making and resource utilization, independent historian/historians were used to obtain complete medical history. I independently interpreted the test that were performed, results were reviewed by me and considered findings on radiology if ordered. Medical management and examination interpretation discussions were had by me with other qualified healthcare professionals as indicated for the patient's care. DX & DISP Disposition: Discharge Departure Impression: Primary Impression: Vertigo Additional Impression: Hypokalemia Condition: Stable Additional Instructions: Please take your medications as prescribed. Follow up with your primary care provider on Wednesday. If you have any worsening symptoms return back to the emergency room. Referrals: REBECA PRAKASH MD (PCP) Time of Disposition: 19:08 I have reviewed the case, and I agree with, Diagnosis and Plan MAGALY MARION [facility] Sep 15, 2025 17:57
[2025-09-15 18:19] LABS: APPEARANCE,URINE CLEAR (CLEAR); GLUCOSE, URINE (UA) NEGATIVE (NEGATIVE); LEUKOCYTE ESTERASE ,URINE NEGATIVE Leu/uL (NEGATIVE); NITRATE,URINE NEGATIVE (NEGATIVE); OCCULT BLOOD,URINE +- (TRACE) (NEGATIVE)
[2025-09-15 18:20] LABS: ADD UA MICROSCOPIC YES
--- NOTE | 2025-09-15 19:01 | HMCIMG ---
EXAM: CT Abdomen and Pelvis Without IV contrast CLINICAL HISTORY: Abdominal pain TECHNIQUE: Axial computed tomography images of the abdomen and pelvis without intravenous contrast. CONTRAST: No IV contrast. COMPARISON: None provided. FINDINGS: LUNG BASES: The lung bases appear clear. No pleural effusions are seen. LIVER: Unremarkable. GALLBLADDER AND BILE DUCTS: Post cholecystectomy status. No biliary ductal dilatation is evident. PANCREAS: Unremarkable. SPLEEN: Unremarkable. ADRENAL GLANDS: Unremarkable. KIDNEYS, URETERS, AND BLADDER: The kidneys appear within normal limits. There is no hydronephrosis or hydroureter. No urinary calculi are seen. STOMACH AND BOWEL: Unremarkable appearance of the stomach and bowel. No evidence of bowel obstruction. No evidence suggesting enteritis or colitis. Mildly fecal loaded colon. Few scattered diverticulae along the sigmoid colon without diverticulitis. APPENDIX: No evidence of acute appendicitis on CT examination. PERITONEUM: No free fluid. No free air. Presumed scar in the right inguinal region that may be related to a prior right inguinal hernia repair, clinical correlation is advised. LYMPH NODES: No lymphadenopathy is evident. REPRODUCTIVE: Unremarkable as visualized. VASCULATURE: No evidence of abdominal aortic aneurysm. Atherosclerotic changes in the abdominal aorta and its branches. BONES: No aggressive appearing osseous lesion. No acute osseous pathology evident. Moderate thoracolumbar degenerative spondylosis with vacuum phenomenon at the L5-S1 level and concern for disc extrusion with inferior migration at the L5-S1 level. IMPRESSION: No acute intra-abdominal or pelvic abnormality. Mild diverticulosis of the sigmoid colon without diverticulitis. Mild constipation. Moderate thoracolumbar degenerative spondylosis with multilevel degenerative disc disease. /[place]
[2025-09-15 19:18] VITALS: BP 140/57; PULSE 85; RESP 18; TEMP 98.2; O2SAT 100
== END 2025-09-15 19:37 | disposition home or self-care (01) ==
LOC: EDH 16:14
DX: R42 Dizziness and giddiness (principal); E87.6 Hypokalemia; R10.13 Epigastric pain; R11.0 Nausea; E78.00 Pure hypercholesterolemia, unspecified; I10 Essential (primary) hypertension; Z88.8 Allergy status to other drugs, medicaments and biological substances; Z90.710 Acquired absence of both cervix and uterus; Z90.49 Acquired absence of other specified parts of digestive tract
CPT/HCPCS: 99285; 70450; 96374; 96361; 96375; 80076; 84484; 80048; 83690; 85025; 81001; 36415; 74176; 93005; J1308; J7030; J0360; J2405

== ENCOUNTER 2025-10-16 12:56 | Observation (INO) | payer OTHER, MEDICARE ==
[~2025-10-16] VITALS: Ht 152.4 cm; Wt 52.7 kg
--- NOTE | 2025-10-16 13:08 | NUR ---
PATIENT IN ROOM
--- NOTE | 2025-10-16 13:21 | ERN ---
ED Note History of Present Illness Stated Complaint: DIZZY W/ N/V Chief Complaint: Dizzy/Light Headed Time Seen by MD: 13:11 Dictation: PATIENT IS A 75-YEAR-OLD FEMALE HERE WITH HER DAUGHTER WITH COMPLAINTS OF DIZZINESS AND VERTIGO ON A WAKENING THIS MORNING, STATES IT IS WORSE WHEN SHE TURNS HER HEAD. SHE STATES SHE WILL BE WOKE UP AT 07:00 HOURS IT GOT BETTER AT 10:00. CAME BACK AND SHE GOT WORSE WITH NAUSEA. SAID SHE TOOK ONE OF HER OWN MECLIZINE AT HOME, IT DID NOT HELP. CURRENTLY DEMONSTRATING RIGHT HORIZONTAL NYSTAGMUS, SPEECH IS CLEAR. NIH IS 0 OTHER THAN NYSTAGMUS. Allergies: Coded Allergies: iodine (Unverified Allergy, Unknown, 05/12/25) Home Meds Active Scripts Meclizine HCl (Meclizine HCl) 25 Mg Tablet, 25 MG PO TID for vertigo, #30 TAB 0 Refills Prov:MIREILLE COBB [employer] 06/29/25 Past Medical History Past Medical History: High Cholesterol, Hypertension, Other Additional Past Medical Hx: SCIATIC Surgical History: Hysterectomy, Cholecystectomy History: Not Applicable RN Note Reviewed/Agreed w/PFSH: Yes Review of System Dictation CONSTITUTIONAL: NEGATIVE EXCEPT FOR HPI HEAD/FACE: NEGATIVE EXCEPT FOR HPI EENT: NEGATIVE EXCEPT FOR HPI RESPIRATORY: NEGATIVE EXCEPT FOR HPI GASTROINTESTINAL/ABDOMINAL: NEGATIVE EXCEPT FOR HPI NAUSEA GENITOURINARY: NEGATIVE EXCEPT FOR HPI MUSCULOSKELETAL: NEGATIVE EXCEPT FOR HPI INTEGUMENTARY: NEGATIVE EXCEPT FOR HPI DIZZINESS NEUROLOGICAL/PSYCH: NEGATIVE EXCEPT FOR HPI HEMATOLOGIC/LYMPHATIC: NEGATIVE EXCEPT FOR HPI ALL SYSTEMS NEGATIVE, EXCEPT NOTED ABOVE. 13 POINT REVIEW OF SYSTEMS ASSESSED AND ALL NEGATIVE EXCEPT FOR ABOVE. Initial Vital Sign VS Vital Signs Date Time Temp Pulse Resp B/P (MAP) Pulse Ox O2 Delivery O2 Flow Rate FiO2 10/16/25 12:57 98.1 65 18 153/52 97 10/16/25 13:08 Room Air* 0 21 Physical Exam Dictation VITAL SIGNS REVIEWED GENERAL APPEARANCE: ALERT, ORIENTED X 3, MILD ACUTE DISTRESS, WELL DEVELOPED, NOURISHED. HEAD AND FACE: NON-TRAUMATIC. EYES: PERRL, PINK CONJUNCTIVAS, EYELID NO TRAUMA, ANTERIOR CHAMBER WITH ARCUS SENILIS. RIGHT HORIZONTAL NYSTAG[place]US EARS: PINNAS INTACT AND NO SIGNS OF TRAUMA OR ERYTHEMA EAR CANALS CLEAR AND NO DISCHARGE TM NO ERYTHEMA NO OTIC CANAL LESIONS NO IMPACTIONS NOSE: NO DISCHARGE, NO BLEEDING. OROPHARYNX: MOUTH NORMAL, TONGUE PINK, PHARYNX CLEAR,NO ERYTHEMA, TONSILS NO EXUDATES, NO ABSCESSES NOTED, MUCOUS MEMBRANE MOIST NECK: SUPPLE, NON-TENDER, NO THYROMEGALY, NO MASSES, NO JVD, NO BRUITS BREAST:DEFERRED CHEST:NO TENDERNESS, NO CREPITUS, NO PARADOXICAL MOVEMENT, NO RETRACTIONS LUNGS:CLEAR, WELL-VENTILATED, SYMMETRIC, NO RALES, NO WHEEZING, NO RHONCHI, NO STRIDOR, GOOD BREATH SOUNDS BILATERALLY HEART: REGULAR RATE, REGULAR RHYTHM, NO MURMUR, NO GALLOPS VASCULAR: NO PERIPHERAL EDEMA, ABDOMEN: SOFT, POSITIVE BOWEL SOUNDS, NONDISTENDED, NO GUARDING, NONTENDER, NO REBOUND, NO MASSES NO HEPATOMEGALY, NO SPLENOMEGALY, NO CISNEROS'S SIGN, NO HERNIAS. RECTAL: DEFERRED GENITAL: DEFERRED NEUROLOGICAL: NORMAL SPEECH, MOTOR FUNCTION INTACT, SENSORY FUNCTION INTACT NIH IS 0 MUSCULOSKELETAL: NECK NONTENDER, FULL RANGE OF MOTION, BACK NONTENDER, FULL RANGE OF MOTION, EXTREMITIES: NONTENDER, FULL RANGE OF MOTION SKIN: COLOR PINK, DRY, NO TURGOR, NO RASH, NO LACERATIONS, NO ABRASIONS, NO CONTUSIONS. LYMPHATIC: DEFERRED Results (Laboratory/Radiology) Laboratory/Radiology Laboratory Tests Test 10/16/25 13:25 10/16/25 14:15 10/16/25 14:57 10/16/25 17:43 White Blood Count 15.4 K/uL (4.8-10.8) H Red Blood Count 4.32 MIL/uL (4.00-5.50) Hemoglobin 13.6 g/dL (12.0-16.0) Hematocrit 39.1 % (36-48) Mean Corpuscular Volume 90.5 fL (79-99) Mean Corpuscular Hemoglobin 31.5 pg (27.0-33.0) Mean Corpuscular Hemoglobin Concent 34.8 g/dL (32.0-36.0) Red Cell Distribution Width 12.3 % (11.0-15.5) Platelet Count 279 K/uL (130-400) Mean Platelet Volume 10.1 fL (7.5-10.5) Immature Granulocyte % (Auto) 2.3 % (0-1) H Neutrophils (%) (Auto) 56.0 % (40.0-77.0) Lymphocytes (%) (Auto) 34.1 % (21.0-51.0) Monocytes (%) (Auto) 6.2 % (3.0-13.0) Eosinophils (%) (Auto) 0.9 % (0.0-8.0) Basophils (%) (Auto) 0.5 % (0.0-5.0) Neutrophils # (Auto) 8.6 K/uL (1.8-7.7) H Lymphocytes # (Auto) 5.3 K/uL (1.0-4.8) H Monocytes # (Auto) 1.0 K/uL (0.1-1.0) Eosinophils # (Auto) 0.14 K/uL (0.00-0.70) Basophils # (Auto) 0.08 K/uL (0.00-0.20) Absolute Immature Granulocyte (auto 0.35 K/uL (0-1) Nucleated Red Blood Cells 0.0 % (0.0-0.19) Sodium Level 136 mmol/L (136-145) Potassium Level 3.2 mmol/L (3.5-5.1) L Chloride Level 97 mmol/L (101-111) L Carbon Dioxide Level 20 mmol/L (21-32) L Blood Urea Nitrogen 25 mg/dL (7-18) H Creatinine 0.8 mg/dL (0.5-1.0) Glomerular Filtration Rate Calc 77 mL/min (>90) Random Glucose 177 mg/dL (70-105) H Total Calcium 9.3 mg/dL (8.5-10.1) Magnesium Level 2.10 mg/dL (1.80-2.40) Troponin I High Sensitivity 6 ng/L (4-50) Lactic Acid Level 3.2 mmol/L (0.8-2.5) H Urine Color COLORLESS (YELLOW) Urine Appearance CLEAR (CLEAR) Urine pH 7.5 (5.0-8.0) Urine Specific [place] 1.008 (1.001-1.031) Urine Protein NEGATIVE mg/dL (NEGATIVE) Urine Glucose (UA) NEGATIVE mg/dL (NEGATIVE) Urine Ketones 10 mg/dL (NEGATIVE) H Urine Occult Blood +- (TRACE) (NEGATIVE) H Urine Nitrate NEGATIVE (NEGATIVE) Urine Bilirubin NEGATIVE mg/dL (NEGATIVE) Urine Urobilinogen 0.2 mg/dL (0.2-1.0) Urine Leukocyte Esterase NEGATIVE [place]/uL Urine RBC 2-5 /HPF (0-1) H Urine WBC 0-1 /HPF (0-1) Urine Squamous Epithelial Cells RARE /HPF (0-2) Urine Bacteria None /HPF (None Seen) Whole Blood Glucose 143 MG/DL (70-110) H Test 10/16/25 18:03 Lactic Acid Level 1.7 mmol/L (0.8-2.5) XAM: CT Head Without IV contrast. CLINICAL HISTORY: WORSENING DIZZINESS VERTIGO ON AWAKENING. HISTORY OF VERTIGO TECHNIQUE: Axial computed tomography images of the head/brain without intravenous contrast. COMPARISON: None provided. FINDINGS: BRAIN: No evidence of acute hemorrhage. No mass lesion. No CT evidence for acute territorial infarct. No midline shift or extra-axial collections. VENTRICLES: No hydrocephalus. ORBITS: The orbits are unremarkable. SINUSES AND MASTOIDS: The paranasal sinuses and mastoid air cells are clear. BONES: No fracture. SOFT TISSUES: Unremarkable. IMPRESSION: No acute intracranial abnormality. /[place] 1528/CHEST X-RAY NEGATIVE Labs Reviewed?: Yes EKG Comment: 1323/EKG SINUS RHYTHM/HEART RATE 72 SUPRAVENTRICULAR BIGEMINY NOTED. QT INTERVAL 515 MILLISECONDS ED Course ED Course Orders Procedure Category Date Status Time Meclizine Hcl 25 Mg PHA 10/16/25 Complete (Antivert 25 Mg) 13:30 Methylprednisolone PHA 10/16/25 Complete Succ 125mg (Solu-Medr 13:30 Ct Head/Brain W/O CT 10/16/25 Resulted Contrast 13:18 Cbc With Differential LAB 10/16/25 Complete 13:18 12 Lead Ekg Tracing- EKG 10/16/25 Complete Technical 13:18 0.9%Nacl 1000ml (Ns PHA 10/16/25 Complete 1000ml) 13:30 Ondansetron 4mg Inj PHA 10/16/25 Complete (Zofran 4mg Inj) 13:30 Magnesium LAB 10/16/25 Complete 13:18 Troponin I High LAB 10/16/25 Complete Sensitivity 13:18 Urinalysis Profile LAB 10/16/25 Complete 13:18 Basic Metabolic Panel LAB 10/16/25 Complete 13:18 Blood Cult MEHNAZ 10/16/25 In Process 13:57 Lactic Acid LAB 10/16/25 Complete 13:57 Potassium Bicarb/Cit PHA 10/16/25 Complete Ac 25meq (K-Lyte Ta 14:30 0.9%Nacl 1000ml (Ns PHA 10/16/25 Complete 1000ml) 15:00 Ceftriaxone 2gm Vial PHA 10/16/25 Complete (Rocephin 2gm Inj) 15:00 Chest 1vw RAD 10/16/25 Resulted 14:47 Neurology Consult CONPHYSVC 10/16/25 Transmitted 15:48 Edm Admit Bridge Order ADM 10/16/25 Transmitted 15:55 Covid19 (Sars Antigen LAB 10/16/25 In Process Rapid) 15:55 Influenza Type A & B, LAB 10/16/25 In Process Rapid 15:55 Vital Signs(Adult CPOE 10/16/25 Transmitted Hospitalist) 15:51 Daily Weights CPOE 10/16/25 Transmitted 15:51 I&O Q Shift CPOE 10/16/25 Transmitted 15:51 Fever: Blood Cx X 2 CPOE 10/16/25 Transmitted 15:51 Acetaminophen 325 Tab PHA 10/16/25 In Process (Tylenol 325mg Tab 16:00 Acetaminophen 325 Tab PHA 10/16/25 In Process (Tylenol 325mg Tab 16:00 Ondansetron 4mg Inj PHA 10/16/25 In Process (Zofran 4mg Inj) 16:00 Mag/Alum/Simeth 30ml PHA 10/16/25 In Process (Maalox Plus 30ml) 16:00 Lactulose 20 Gm/30 Ml PHA 10/16/25 In Process Udcup (Constulose 16:00 Nitroglycerin 0.4mg PHA 10/16/25 In Process Sl Tab (Nitrostat) 16:00 Albuterol 0.083% PHA 10/16/25 In Process 2.5mg/3ml (Proventil 16:00 Comprehensive LAB 10/17/25 Verified Metabolic Panel 04:00 Hemoglobin A1c LAB 10/17/25 Verified 04:00 Mr Brain Wo Con MRI 10/16/25 Logged 15:51 Pt Eval And Treat PT 10/16/25 Transmitted 15:51 Case Management CM 10/16/25 Transmitted Evaluation 15:51 Guaifenesin Sug-Oral PHA 10/16/25 In Process 100 Mg/5ml (Robituss 16:00 Docusate Sodium 100 PHA 10/16/25 In Process Mg Cap (Colace 100mg 16:00 Polyethylene Glycol PHA 10/16/25 In Process 3350 (Miralax 3350 1 16:00 Lidocaine Hcl 2% PHA 10/16/25 In Process Viscous (Lidocaine Hcl 16:00 Natural Tears 15ml PHA 10/16/25 In Process (Artificial Tears) 16:00 Benzocaine/Menth/Cetylpyrd PHA 10/16/25 In Process Cl (Cepacol S 16:00 Admit Orders ADM 10/16/25 Transmitted 15:51 Telemetry Monitoring CPOE 10/16/25 Transmitted 15:51 Activity: Ad Ruth CPOE 10/16/25 Transmitted 15:51 Heart Healthy Diet DIET 10/16/25 Transmitted Dinner Initiate YOLANDE 10/16/25 In Process Hyperglycemia Protoco 15:51 Insulin Lispro 100 PHA 10/16/25 In Process Unit/Ml 3ml (Humalog 16:30 Mr Angio Neck Wo Con MRI 10/16/25 Logged 15:51 Aspirin 325mg Tab PHA 10/16/25 In Process (Aspirin 325mg Tab) 16:00 0.9%Nacl 1000ml (Ns PHA 10/16/25 In Process 1000ml) 16:30 Cbc Without LAB 10/17/25 Verified Differential 04:00 Magnesium LAB 10/17/25 Verified 04:00 Lipase LAB 10/17/25 Verified 04:00 Ceftriaxone 2gm Vial PHA 10/17/25 In Process (Rocephin 2gm Inj) 16:30 Lactic Acid (Removed) LAB 10/16/25 Complete 17:44 Current Medications Medications (Trade) Dose Ordered Sig/Yvonne Route PRN Reason Start Time Stop Time Status Last Admin Dose Admin Acetaminophen (TYLenol 325MG TAB) 650 mg Q4H PRN PO MILD PAIN (1-3) 10/16/25 16:00 11/15/25 15:59 Acetaminophen (TYLenol 325MG TAB) 650 mg Q6H PRN PO TEMPERATURE GREATER THAN 101.5 10/16/25 16:00 11/15/25 15:59 10/16/25 16:57 Al Hydroxide/Mg Hydroxide (MAALox PLUS 30ML) 30 ml Q6H PRN PO INDIGESTION 10/16/25 16:00 11/15/25 15:59 Albuterol Sulfate (Proventil 0.083% 2.5mg/3ml) 2.5 mg Q4H PRN IH RESPIRATORY SYMPTOMS 10/16/25 16:00 11/15/25 15:59 Artificial Tears (Artificial Tears) 1 DROP Q2H PRN OP DRY EYES 10/16/25 16:00 11/15/25 15:59 Aspirin (Aspirin 325mg Tab) 325 mg DAILY PO 10/16/25 16:00 11/15/25 15:59 Benzocaine (Cepacol Sore Throat Lozenge) 1 each Q2H PRN MM SORE THROAT 10/16/25 16:00 11/15/25 15:59 Ceftriaxone Sodium (Rocephin 2gm Inj) 2 gm ONCE ONCE IVPB 10/16/25 15:00 10/16/25 15:01 DC 10/16/25 16:52 Ceftriaxone Sodium (Rocephin 2gm Inj) 2 gm Q24H IVPB 10/17/25 16:30 10/27/25 16:29 Docusate Sodium (COLace 100MG CAP) 100 mg BID PRN PO CONSTIPATION 10/16/25 16:00 11/15/25 15:59 Guaifenesin (RobiTUSSin SUGAR-FREE 100 MG/ 5 ML UDCUP) 200 mg Q4H PRN PO COUGH 10/16/25 16:00 11/15/25 15:59 Insulin Human Lispro (HumaLOG LISpro 100 UNIT/ML 3ML) INSULIN SLIDING SCAL... ACHS SQ 10/16/25 16:30 11/15/25 16:29 Lactulose (Constulose 20gm/ 30ml Udcup) 20 gm BID PRN PO CONSTIPATION 10/16/25 16:00 11/15/25 15:59 Lidocaine HCl/Al Hydroxide/Mg Hydroxide/ Dicyclomine HCl 20ML OR AD MAALOX P... Q6H PRN PO HEARTBURN 10/16/25 16:00 11/15/25 15:59 Meclizine HCl (ANTIvert 25 mg) 50 mg ONCE ONCE PO 10/16/25 13:30 10/16/25 13:31 DC Methylprednisolone Sodium Succinate (Solu-medROL 125MG) 125 mg ONCE ONCE IVP 10/16/25 13:30 10/16/25 13:31 DC 10/16/25 13:30 Nitroglycerin (Nitrostat) 0.4 mg PROTOCOL PRN SL CHEST PAIN 10/16/25 16:00 11/15/25 15:59 Ondansetron HCl (zoFRAN 4MG INJ) 4 mg ONCE ONCE IVP 10/16/25 13:30 10/16/25 13:31 DC 10/16/25 13:30 Ondansetron HCl (zoFRAN 4MG INJ) 4 mg Q6H PRN IV NAUSEA/VOMITING 10/16/25 16:00 11/15/25 15:59 Polyethylene Glycol (MIRalax 3350 17 GM POWD.PACK) 17 gm DAILY PRN PO CONSTIPATION 10/16/25 16:00 11/15/25 15:59 Potassium Bicarbonate (K-Lyte Tablet Eff 25 Meq Tablet.eff) 25 meq ONCE ONCE PO 10/16/25 14:30 10/16/25 14:31 DC 10/16/25 14:30 Sodium Chloride 1,000 ml @ 0 mls/hr ONCE ONCE IV 10/16/25 13:30 10/16/25 13:31 DC 10/16/25 13:30 Sodium Chloride 1,000 ml @ 75 mls/hr [id number] IV 10/16/25 16:30 11/15/25 16:29 10/16/25 17:47 Sodium Chloride 1,524 ml @ 508 mls/hr ONCE ONCE IV 10/16/25 15:00 10/16/25 17:59 DC 10/16/25 16:59 Vital Signs Date Time Temp Pulse Resp B/P (MAP) Pulse Ox O2 Delivery O2 Flow Rate FiO2 10/16/25 16:34 73 16 N/A Room Air 21 10/16/25 14:19 98.1 59 24 150/54 100 Room Air* 0 21 10/16/25 13:08 98.1 65 18 153/52 97 Room Air* 0 21 10/16/25 12:57 98.1 65 18 153/52 97 1550/patient states she still feels dizzy however improved after fluids. She did receive his Solu-Medrol, refused the meclizine because it makes her stomach upset. Potassium 3.2 and replaced orally. Patient neurologically intact with a negative CT of the head She will be admitted to the hospital for sepsis/leukocytosis and follow up with Neurology consultation 1555/spoke with Alina IVORY for hospitalist group reviewed chest x-ray EKG labs CT of the head. She is also aware I have replace potassium orally Also have given 30 per kilos fluids for sepsis with Rocephin 2 g. She agreed to admit patient. 1620/[facility]OKE WITH[facility] I made him aware that I would hurt back from Dr. Sutton and he was requesting an MRI of the brain. He said that if MRI was negative that we could do ENT after patient was discharged outpatient HEART Score Response (Comments) Value EKG: Repolarization changes 1 Age: > 65yrs (+2) 2 Risk Factors: 1-2 risk factors (+1) 1 Initial Troponin: Normal limit (0) 0 Total 4 Medical Decision Making MDM MDM: Differential diagnosis: ACS/AMI/neuro lesions/electrolyte imbalance/dehydration/UTI labyrinthitis Rationale: Tests considered and ordered secondary to shared decision making include: labs, ECG and radiology Previous outside records reviewed: Old ER visits. Risk of complication and/or morbidity or mortality of patient management: Mild moderate Need for hospitalization: Patient does meet criteria for hospitalization. Patient be admitted to the hospital for continued fluid resuscitation antibiotics for sepsis and lactic acid doses additionally she will need consult with Neurology for her dizziness vertigo Need for emergency major/minor surgery: No There are no social concerns with this patient. Prescription drug management Prescriptions will include symptomatic care Patient's prior external medical records from other ER visits were reviewed by me as indicated. Prior testing and results from previous visits were reviewed. Prior tests were taken into account with medical decision making and resource utilization, independent historian/historians were used to obtain complete medical history. I independently interpreted the test that were performed, results were reviewed by me and considered findings on radiology if ordered. Medical management and examination interpretation discussions were had by me with other qualified healthcare professionals as indicated for the patient's care. DX & DISP Disposition: Inpatient Decision to Admit Time: 15:51 Departure Impression: Primary Impression: Vertigo Additional Impressions: Dehydration, Stage 3 chronic kidney disease, Uncontrolled diabetes mellitus, Sepsis, Hypokalemia Condition: Stable Referrals: REBECA PRAKASH MD (PCP) Time of Disposition: 15:51 I have reviewed the case, and I agree with, Diagnosis and Plan KARTIK BETTENCOURT Oct 16, 2025 13:21
[2025-10-16] MEDS: 0.9%NACL 1000ML 1,000 ML IV ONE (13:30)
[2025-10-16 13:37] LABS: IMMATURE GRANULOCYTE ABSOLUTE 0.35 K/uL (0-1); NUCLEATED RED BLOOD CELLS 0.0 % (0.0-0.19); PLATELET COUNT (AUTO) 279 K/uL (130-400); RED BLOOD CELL COUNT(AUTO) 4.32 MIL/uL (4.00-5.50); RED CELL DISTRIBUTION WIDTH 12.3 % (11.0-15.5); WHITE BLOOD COUNT (AUTO) 15.4 K/uL (4.8-10.8)
[2025-10-16 13:45] LABS: CREATININE 0.8 mg/dL (0.5-1.0); GLOMERULAR FILTR. RATE CALC 77.0 mL/min (>90); GLUCOSE,RANDOM 177.0 mg/dL (70-105); SODIUM SERUM 136.0 mmol/L (136-145); UREA NITROGEN, BLOOD 25.0 mg/dL (7-18)
--- NOTE | 2025-10-16 14:28 | EKG ---
[facility] Test Date: 2025-10-16 Test Time: 13:23:19 Pat Name: KIM DEY Department: [facility] Room: ED Gender: F Inspector [place]: 9501 : 1950 Requested By: KARTIK BETTENCOURT Order Number: [id number] Reading MD: Chuy Metz Measurements Intervals [place] Rate: 72 P: 43 [place]: 178 QRS: 54 QRSD: 93 T: 54 QT: 470 QTc: 515 Interpretive Statements Sinus rhythm Supraventricular bigeminy Prolonged QT interval Compared to ECG 09/15/2025 17:05:57 Atrial premature complex(es) now present Prolonged QT interval now present Electronically Signed On 10-16-2025 20:21:51 GENERAL DENTIST/OWNER by Chuy Metz Please click the below link to view image of tracing.
--- NOTE | 2025-10-16 14:56 | HMCIMG ---
EXAM: CT Head Without IV contrast. CLINICAL HISTORY: WORSENING DIZZINESS VERTIGO ON AWAKENING. HISTORY OF VERTIGO TECHNIQUE: Axial computed tomography images of the head/brain without intravenous contrast. COMPARISON: None provided. FINDINGS: BRAIN: No evidence of acute hemorrhage. No mass lesion. No CT evidence for acute territorial infarct. No midline shift or extra-axial collections. VENTRICLES: No hydrocephalus. ORBITS: The orbits are unremarkable. SINUSES AND MASTOIDS: The paranasal sinuses and mastoid air cells are clear. BONES: No fracture. SOFT TISSUES: Unremarkable. IMPRESSION: No acute intracranial abnormality. /[place]
[2025-10-16 15:07] LABS: APPEARANCE,URINE CLEAR (CLEAR); GLUCOSE, URINE (UA) NEGATIVE (NEGATIVE); LEUKOCYTE ESTERASE ,URINE NEGATIVE Leu/uL (NEGATIVE); NITRATE,URINE NEGATIVE (NEGATIVE); OCCULT BLOOD,URINE +- (TRACE) (NEGATIVE)
[2025-10-16 15:26] LABS: ADD UA MICROSCOPIC YES
[2025-10-16 15:29] LABS: SQUAMOUS EPITHELIAL CELL,UR RARE /HPF (0-2)
[2025-10-16] MEDS ORDERED: MAG/ALUM/SIMETH 30 ML UDCUP PO PRN (16:00)
[2025-10-16] MEDS ORDERED: LACTULOSE 20 GM/30 ML UDCUP PO PRN (16:00)
[2025-10-16] MEDS ORDERED: BENZOCAINE/MENTH/CETYLPYRD CL 1 EACH LOZENGE MM PRN (16:00)
[2025-10-16] MEDS ORDERED: ARTIFICAL TEARS SOL 15 ML OP PRN (16:00)
[2025-10-16] MEDS ORDERED: NITROGLYCERIN 0.4 MG SL TAB SL PRN (16:00)
[2025-10-16] MEDS: ASPIRIN 325MG TAB PO SCH (16:00)
[2025-10-16] MEDS ORDERED: ALBUTEROL 0.083% 2.5 MG/3 ML INH IH PRN (16:00)
[2025-10-16] MEDS ORDERED: LIDOCAINE HCL 2% VISCOUS 30 ML, MAG/ALUM/SIMETH 30ML 30 ML, DICYCLOMINE HCL 20 MG PO PRN (16:00)
--- NOTE | 2025-10-16 16:20 | HMCIMG ---
EXAM: CR Chest, 1 View. CLINICAL HISTORY: SOB/COUGH COMPARISON: 06/29/25 FINDINGS: LUNGS: There is no mass, infiltrate, or acute pulmonary abnormality. PLEURAL SPACES: No pleural effusion or pneumothorax. MEDIASTINUM: Cardiac size and mediastinal contours within normal limits. BONES: No aggressive appearing osseous lesion seen. IMPRESSION: No acute cardiopulmonary pathology is evident. /[place]
[2025-10-16 16:34] VITALS: PULSE 73; RESP 16; O2SAT 97
[2025-10-16] MEDS: 0.9%NACL 1000ML 1,000 ML IV SCH (17:47)
--- NOTE | 2025-10-16 17:51 | NUR ---
PT REFUSED ASPIRIN 325 MG. PT STATED THAT ASPIRIN IRRITATES HER STOMACHE AND THAT SHE WAS AFRAID OF TAKING. PT WAS EDUCATED ON THE USE OF ASPIRIN AND ITS SIDE EFFECTS, PT DID NOT WANT TO TAKE THE MEDICATION.
[2025-10-16 18:34] LABS: INFLUENZA TYPE B Negative For Type B (NEGATIVE)
[2025-10-16 18:43] LABS: COVID19 (SARS ANTIGEN RAPID) PRESUMPTIVE NEGATIVE (NEGATIVE)
[2025-10-16 18:50] LABS: INFLUENZA TYPE A Positive For Type A (NEGATIVE)
--- NOTE | 2025-10-16 19:35 | NUR ---
PT CARE ASSUMED AT THIS TIME
--- NOTE | 2025-10-16 21:03 | NUR ---
ACE JASMINE AT BEDSIDE AT THIS TIME
[2025-10-16] MEDS: OSELTAMIVIR PHOSPHATE 75 MG CAP PO SCH (21:20)
--- NOTE | 2025-10-16 21:34 | HP ---
[facility] HISTORY & PHYSICAL Date Patient Seen: Oct 16, 2025 Time of Visit: 21:25 Supervising Physician: Dr. Sumeet Travis Primary Care Physician: Dr. Mojica Outpatient Specialists: [ ] Inpatient Consults: [ ] PROBLEM LIST: Dizziness, CT of the head negative for intracranial pathology, POA Flu A positive, currently on Tamiflu and ceftriaxone, no flu shot, POA Severe sepsis, likely from respiratory infection, POA Lactic acidosis, POA Hypokalemia, likely from episodic vomiting, POA Intractable nausea and vomiting, POA Hypertension, POA Hyperlipidemia, POA History of sciatica PLAN: Admit to medical-surgical floor VS per unit protocol Keep SBP less than 160 Isolation precautions Continue ceftriaxone and Tamiflu Treat fever aggressively Monitor temperature curve CBC, CMP, magnesium level daily Bilateral SCDs Heart healthy diet Incentive spirometry DuoNeb q.6 as needed for shortness of breaths HPI: 75-year-old female with past medical history of sciatica, hypertension, hyperlipidemia who presented to ED via private vehicle with complaint of dizziness, with associated nausea and vomiting, there is also complaint of cough with clear phlegm, with associated congestion and postnasal drainage. There is no associated confusion, or fever. There is also no associated exposure to sick person. Per patient was evaluated earlier by PCP for dizziness, unsure of possible etiology. In ED stat chest x-ray was done showed no acute, CT of the head did not reveal any intracranial abnormality. Her CBC is significant [place] [address], chemistry did not reveal any electrolyte or kidney dysfunction. Her COVID tests was negative however patient tested positive with flu a. Patient was subsequently started on Tamiflu and IV ceftriaxone. At present patient is currently hemodynamically stable, on room air with appropriate oxygen saturation, denies any headache, chest pain, shortness of breath, abdominal pain, diarrhea, or fever. Patient denies any smoking, alcohol intake, or illicit drug use. PAST MEDICAL HX: see above PAST SURGICAL HX: noncontributory SOCIAL HISTORY: No tobacco, ETOH, or illicit drug use Coded Allergies: iodine (Unverified Allergy, Unknown, 05/12/25) REVIEW OF SYSTEMS: 12 point ROS reviewed with patient. Pertinent positives mentioned above. Oth erwise negative. PHYSICAL EXAM: GENERAL: alert, weak, awake oriented x 3 HEENT: EOMI, Sclera non icteric, has nasal congestion NECK: Supple, no JVD, trachea midline LUNGS: Clear breath sounds bilaterally. No wheezes HEART: Regular rate and rhythm. Normal S1 and S2, without murmurs ABD: Abdomen soft, nontender. Bowel sounds present EXT: No clubbing cyanosis or edema NEURO: Alert and oriented to person, follows commands Vital Signs (last 8hr) Date Time Temp Pulse Resp B/P (MAP) Pulse Ox O2 Delivery O2 Flow Rate FiO2 10/16/25 20:11 98.1 66 17 160/45 97 Room Air* 0 21 10/16/25 16:34 73 16 N/A Room Air 21 10/16/25 14:19 98.1 59 24 150/54 100 Room Air* 0 21 LABS: Hematology Labs: Test 10/16/25 13:25 Range/Units White Blood Count 15.4 H 4.8-10.8 K/uL Red Blood Count 4.32 4.00-5.50 MIL/uL Hemoglobin 13.6 12.0-16.0 g/dL Hematocrit 39.1 36-48 % Mean Corpuscular Volume 90.5 79-99 fL Mean Corpuscular Hemoglobin 31.5 27.0-33.0 pg Mean Corpuscular Hemoglobin Concent 34.8 32.0-36.0 g/dL Red Cell Distribution Width 12.3 11.0-15.5 % Platelet Count 279 130-400 K/uL Mean Platelet Volume 10.1 7.5-10.5 fL Immature Granulocyte % (Auto) 2.3 H 0-1 % Neutrophils (%) (Auto) 56.0 40.0-77.0 % Lymphocytes (%) (Auto) 34.1 21.0-51.0 % Monocytes (%) (Auto) 6.2 3.0-13.0 % Eosinophils (%) (Auto) 0.9 0.0-8.0 % Basophils (%) (Auto) 0.5 0.0-5.0 % Neutrophils # (Auto) 8.6 H 1.8-7.7 K/uL Lymphocytes # (Auto) 5.3 H 1.0-4.8 K/uL Monocytes # (Auto) 1.0 0.1-1.0 K/uL Eosinophils # (Auto) 0.14 0.00-0.70 K/uL Basophils # (Auto) 0.08 0.00-0.20 K/uL Absolute Immature Granulocyte (auto 0.35 0-1 K/uL Nucleated Red Blood Cells 0.0 0.0-0.19 % Chemistry Labs: Test 10/16/25 21:11 10/16/25 18:03 10/16/25 13:25 Range/Units Whole Blood Glucose 169 H 70-110 MG/DL Lactic Acid Level 1.7 0.8-2.5 mmol/L Sodium Level 136 136-145 mmol/L Potassium Level 3.2 L 3.5-5.1 mmol/L Chloride Level 97 L 101-111 mmol/L Carbon Dioxide Level 20 L 21-32 mmol/L Blood Urea Nitrogen 25 H 7-18 mg/dL Creatinine 0.8 0.5-1.0 mg/dL Glomerular Filtration Rate Calc 77 >90 mL/min Random Glucose 177 H 70-105 mg/dL Total Calcium 9.3 8.5-10.1 mg/dL Magnesium Level 2.10 1.80-2.40 mg/dL Troponin I High Sensitivity 6 4-50 ng/L DIAGNOSTICS / RADIOLOGY RESULTS: EXAM: CR Chest, 1 View. CLINICAL HISTORY: SOB/COUGH COMPARISON: 06/29/25 FINDINGS: LUNGS: There is no mass, infiltrate, or acute pulmonary abnormality. PLEURAL SPACES: No pleural effusion or pneumothorax. MEDIASTINUM: Cardiac size and mediastinal contours within normal limits. BONES: No aggressive appearing osseous lesion seen. IMPRESSION: No acute cardiopulmonary pathology is evident. PLAN NEURO: Minimize central acting medications as possible. Maintain fall precautions, adequate lighting during the day PULMONARY: Supplemental 02 as needed. Maintain aspiration precautions at all times CARDIOVASCULAR: Follow hemodynamics. Vital signs per facility protocol GI & NUTRITION: Continue with nutritional support. Continue stool softeners and laxatives as needed. KIDNEYS & ELECTROLYTES: Strict monitoring of intake, output and overall fluid balance. Avoid nephrotoxic medications to the extent possible. Medications to be dosed according to renal function. Monitor electrolytes and replace as needed ENDOCRINE: Maintain blood glucose between 100-180 at all times. Hypoglycemia protocol in place INFECTIOUS DISEASE: Trend temperature, WBC and procalcitonin level Follow cultures, deescalate antibiotics as soon as possible. Panculture if new onset fever ONCOLOGY/HEMATOLOGY/COAGULATION: Monitor for s/s of bleeding Monitor hemoglobin, coagulation studies as needed SKIN: Pressure ulcer prevention per facility protocol Specialty mattress ORTHO/REHAB: Continue PT/OT Prophylaxis: Continue GI and DVT prophylaxis Code Status: Full Resuscitation Disposition: TBD [facility]vising physician[facility] Oct 16, 2025 21:34
--- NOTE | 2025-10-16 23:35 | NUR ---
REPORT GIVEN TO SPIKE RN
[2025-10-17 05:18] LABS: NUCLEATED RED BLOOD CELLS 0.0 % (0.0-0.19); PLATELET COUNT (AUTO) 221.0 K/uL (130-400); RED BLOOD CELL COUNT(AUTO) 4.0 MIL/uL (4.00-5.50); RED CELL DISTRIBUTION WIDTH 12.6 % (11.0-15.5); WHITE BLOOD COUNT (AUTO) 13.2 K/uL (4.8-10.8)
[2025-10-17 05:42] LABS: ASPARTATE AMINOTRANSFERASE 26.0 U/L (10-37); CREATININE 0.6 mg/dL (0.5-1.0); GLOMERULAR FILTR. RATE CALC 94.0 mL/min (>90); GLUCOSE,RANDOM 133.0 mg/dL (70-105); SODIUM SERUM 143.0 mmol/L (136-145); TOTAL PROTEIN, SERUM 6.4 g/dL (6.0-8.3); UREA NITROGEN, BLOOD 16.0 mg/dL (7-18)
[2025-10-17 07:20] VITALS: PULSE 69; RESP 18; O2SAT 98
[2025-10-17] MEDS ORDERED: METO1TAB13 PO (09:18)
--- NOTE | 2025-10-17 12:44 | NUR ---
REPORT GIVEN TO NURSE MEZA
--- NOTE | 2025-10-17 12:45 | NUR ---
NEURO CONSULT ORDER FOR NEURO CONSULT ON FILE. PER MARIIA, RN IN ER, DR. NAVARRO HAS BEEN NOTIFIED, HOWEVER, STATED WILL ROUND ONCE MRI RESULTS ARE ON FILE. MRI PENDING TO BE DONE. PER MARIIA, MRI DEPT WILL COMPLETE EXAM ONCE AVAILABILITY IS OPEN DUE TO ORDER BEING "ROUTINE".
--- NOTE | 2025-10-17 13:10 | NUR ---
ARRIVAL PT ARRIVED VIA STRETCHER FROM ER, NO S/S OF DISTRESS AT THIS TIME.
[2025-10-17 13:15] VITALS: BP 124/74; PULSE 71; RESP 14; TEMP 97.6
--- NOTE | 2025-10-17 13:19 | NUR ---
DCP: HOME pt lives independently at home alone. Pt requires no assistance with her ADLS, home management or meal prep. Has no provider, HH or HD services. PCP is Juan F bell and uses [facility] for rx. Denies dc needs and will return home at mt
[2025-10-17] MEDS ORDERED: MULT12TA PO (15:10)
[2025-10-17] MEDS ORDERED: ONDA-243 PO (15:10)
[2025-10-17] MEDS ORDERED: METO-408 PO (15:10)
[2025-10-17] MEDS ORDERED: MECL-226 PO (15:10)
[2025-10-17 16:17] VITALS: BP 138/47; PULSE 61; RESP 13; TEMP 98
--- NOTE | 2025-10-17 16:32 | PN ---
[facility] PROGRESS NOTE Date Patient Seen: Oct 17, 2025 Time of Visit: 1120 Supervising Physician: Dr. Sumeet Travis Primary Care Physician: Dr. Mojica Consult: Dr. Sutton, Neurology PROBLEM LIST: Dizziness, CT of the head negative for intracranial pathology, POA Flu A positive, currently on Tamiflu and ceftriaxone, no flu shot, POA Severe sepsis, likely from respiratory infection, POA Lactic acidosis, POA Hypokalemia, likely from episodic vomiting, POA Intractable nausea and vomiting, POA Hypertension, POA Hyperlipidemia, POA History of sciatica PLAN: Isolation precautions Continue ceftriaxone and Tamiflu Pending MRI to be read Treat fever aggressively Zofran for nausea / vomiting CBC, CMP, magnesium level daily Bilateral SCDs Heart healthy diet Incentive spirometry DuoNeb q.6 as needed for shortness of breaths INTERVAL HISTORY: Patient assessed at bedside today, daughter present. Patient denies fever, cough, feeling dizzy, nauseas, or short of breath. WBC 13.2, Hgb 12.4, Hct 37.0. CT and CXR negative. Patient to continue with IV Ceftriaxone and Tamiflu. Pendi ng MRI of brain to be read as well as CT abdomen/pelvis. Bedside nurse reports no acute incidents. Denies any chest pain, abdominal pain, nausea or vomiting. REVIEW OF SYSTEMS: 12 point ROS reviewed with patient. Pertinent positives mentioned above. Otherwise negative. PHYSICAL EXAM: GENERAL: alert, awake oriented x 3 HEENT: EOMI, Sclera non icteric, has nasal congestion NECK: Supple, no JVD, trachea midline LUNGS: Clear breath sounds bilaterally. No wheezes HEART: Regular rate and rhythm. Normal S1 and S2, without murmurs ABD: Abdomen soft, nontender. Bowel sounds present EXT: No clubbing cyanosis or edema NEURO: Alert and oriented to person,place, follows commands Vital Signs (last 8hr) Date Time Temp Pulse Resp B/P (MAP) Pulse Ox O2 Delivery O2 Flow Rate FiO2 10/17/25 16:17 98.1 61 13 138/47 99 Room Air 10/17/25 13:15 97.5 71 14 124/74 97 Room Air 10/17/25 12:29 98.2 69 12 158/66 98 Room Air* 0 21 10/17/25 09:20 97.0 71 17 145/62 98 Room Air* 0 21 LABS: Hematology Labs: Test 10/17/25 05:09 10/16/25 13:25 Range/Units White Blood Count 13.2 H 4.8-10.8 K/uL Red Blood Count 4.00 4.00-5.50 MIL/uL Hemoglobin 12.4 12.0-16.0 g/dL Hematocrit 37.0 36-48 % Mean Corpuscular Volume 92.5 79-99 fL Mean Corpuscular Hemoglobin 31.0 27.0-33.0 pg Mean Corpuscular Hemoglobin Concent 33.5 32.0-36.0 g/dL Red Cell Distribution Width 12.6 11.0-15.5 % Platelet Count 221 130-400 K/uL Mean Platelet Volume 9.9 7.5-10.5 fL Nucleated Red Blood Cells 0.0 0.0-0.19 % Immature Granulocyte % (Auto) 2.3 H 0-1 % Neutrophils (%) (Auto) 56.0 40.0-77.0 % Lymphocytes (%) (Auto) 34.1 21.0-51.0 % Monocytes (%) (Auto) 6.2 3.0-13.0 % Eosinophils (%) (Auto) 0.9 0.0-8.0 % Basophils (%) (Auto) 0.5 0.0-5.0 % Neutrophils # (Auto) 8.6 H 1.8-7.7 K/uL Lymphocytes # (Auto) 5.3 H 1.0-4.8 K/uL Monocytes # (Auto) 1.0 0.1-1.0 K/uL Eosinophils # (Auto) 0.14 0.00-0.70 K/uL Basophils # (Auto) 0.08 0.00-0.20 K/uL Absolute Immature Granulocyte (auto 0.35 0-1 K/uL Chemistry Labs: Test 10/17/25 12:24 10/17/25 05:09 10/16/25 18:03 10/16/25 13:25 Range/Units Whole Blood Glucose 135 H 70-110 MG/DL Sodium Level 143 136-145 mmol/L Potassium Level 4.1 3.5-5.1 mmol/L Chloride Level 109 101-111 mmol/L Carbon Dioxide Level 24 21-32 mmol/L Blood Urea Nitrogen 16 7-18 mg/dL Creatinine 0.6 0.5-1.0 mg/dL Glomerular Filtration Rate Calc 94 >90 mL/min Random Glucose 133 H 70-105 mg/dL Total Calcium 8.7 8.5-10.1 mg/dL Magnesium Level 2.00 1.80-2.40 mg/dL Total Bilirubin 0.4 0.2-1.0 mg/dL Aspartate Amino Transf (AST/SGOT) 26 10-37 U/L Alanine Aminotransferase (ALT/SGPT) 31 12-78 U/L Alkaline Phosphatase 79 50-136 U/L Total Protein 6.4 6.0-8.3 g/dL Albumin 3.2 L 3.5-5.0 g/dL Lipase 87 H 16-77 U/L Lactic Acid Level 1.7 0.8-2.5 mmol/L Hemoglobin A1c 5.4 4.0-6.0 % Estimated Average Glucose (eAG) 108 70-126 mg/dL Troponin I High Sensitivity 6 4-50 ng/L DIAGNOSTICS / RADIOLOGY RESULTS: n/a PLAN NEURO: Minimize central acting medications as possible. Maintain fall precautions, adequate lighting during the day PULMONARY: Supplemental 02 as needed. Maintain aspiration precautions at all times CARDIOVASCULAR: Follow hemodynamics. Vital signs per facility protocol GI & NUTRITION: Continue with nutritional support. Continue stool softeners and laxatives as needed. KIDNEYS & ELECTROLYTES: Strict monitoring of intake, output and overall fluid balance. Avoid nephrotoxic medications to the extent possible. Medications to be dosed according to renal function. Monitor electrolytes and replace as needed ENDOCRINE: Maintain blood glucose between 100-180 at all times. Hypoglycemia protocol in place INFECTIOUS DISEASE: Trend temperature, WBC and procalcitonin level Follow cultures, deescalate antibiotics as soon as possible. Panculture if new onset fever ONCOLOGY/HEMATOLOGY/COAGULATION: Monitor for s/s of bleeding Monitor hemoglobin, coagulation studies as needed SKIN: Pressure ulcer prevention per facility protocol Specialty mattress ORTHO/REHAB: Continue PT/OT Prophylaxis: Continue GI and DVT prophylaxis Protonix and Lovenox Code Status: Full Resuscitation Disposition: LISBETH VARELA APRN Oct 17, 2025 16:32 CHATO DICKERSON UNDER CUTTING MACHINE OPERATOR Oct 17, 2025 22:01
[2025-10-17 20:00] VITALS: O2SAT 99
[2025-10-17 20:56] VITALS: BP 178/67; PULSE 64; RESP 18; TEMP 98.4
[2025-10-18] VITALS (7 sets, daily range): BP systolic 153–171; BP diastolic 57–101; PULSE 56–68; RESP 12–18; TEMP 97.5–98; O2SAT 97–99
--- NOTE | 2025-10-18 00:04 | HMCIMG ---
EXAM: CT SCAN OF THE ABDOMEN AND PELVIS WITHOUT CONTRAST Clinical statement: Nausea and vomiting. STUDY PROTOCOL: CT radiation dose protocol was performed in accordance with the principles of ALARA. A multislice CT scan of the abdomen and pelvis was done without intravenous contrast. Sections are obtained from the diaphragms to the inguinal region. RADIATION DOSE: CTDIvol 6 mGy; DLP 315.70 mGycm. CONTRAST: No intravenous contrast administered. COMPARISON: CT scan of the abdomen and pelvis without contrast from 09/15/2025 at 17:23 EST. FINDINGS: LUNG BASE: Visualized lung bases are clear. No consolidation, nodule, or pleural effusion. LIVER: Normal in size and attenuation with smooth margins. No focal hepatic lesion or calcification is identified. No intrahepatic or extrahepatic biliary ductal dilatation. Finn hepatis is unremarkable. GALL BLADDER: Post cholecystectomy status with surgical clips in the gallbladder fossa. No focal fluid collection or biliary dilatation to suggest biliary obstruction. PANCREAS: Normal in size, contour, and attenuation. No peripancreatic inflammatory change or fluid collection. SPLEEN: Normal in size, morphology, and attenuation. No focal splenic lesion. KIDNEYS: Kidneys are normal in size and morphology with symmetric attenuation. No renal mass, stone, hydronephrosis, or hydroureter. No evidence of obstructive uropathy. GIT /T/ PERITONEAL CAVITY: Stomach and small bowel demonstrate normal wall thickness and caliber without evidence of obstruction. No CT features of enteritis or colitis. Colon is mildly fecal loaded. Few scattered sigmoid diverticula are present without surrounding inflammatory change to suggest diverticulitis. No free intraperitoneal fluid or free air. APPENDIX: Appendix is visualized and normal in caliber without wall thickening or periappendiceal fat stranding. No CT evidence of acute appendicitis. LYMPHNODES: No pathologically enlarged mesenteric, retroperitoneal, or pelvic lymph nodes. RETROPERITONEUM: Adrenal glands are unremarkable. Abdominal aorta and its major branches are normal in caliber with atherosclerotic calcifications. IVC is normal in course and caliber. No retroperitoneal mass or collection. PELVIS: Urinary bladder is normal in wall thickness and distention. Visualized reproductive organs are unremarkable for age. Linear soft-tissue density in the right inguinal region is compatible with postsurgical change, likely related to prior right inguinal hernia repair if clinically documented. MUSCULOSKELETAL: No aggressive osseous lesion or acute fracture. Moderate thoracolumbar degenerative spondylosis with endplate osteophytes. Vacuum phenomenon at L5S1 with concern for disc extrusion and inferior migration at this level. OTHER: Interval small fat-containing umbilical hernia and tiny fat-containing left inguinal hernia without surrounding inflammatory change or bowel involvement. Extra-abdominal and paraspinal soft tissues are otherwise unremarkable. IMPRESSION: * No CT evidence of acute intra-abdominal or pelvic pathology to account for nausea and vomiting. No bowel obstruction, enteritis, colitis, or appendicitis identified. * Colonic diverticulosis of the sigmoid colon without CT evidence of diverticulitis. * Moderate thoracolumbar degenerative spondylosis with vacuum phenomenon and suspected disc extrusion with inferior migration at L5S1. Correlate with history of back pain or radicular symptoms; if clinically significant neurologic symptoms are present, lumbar spine MRI may be helpful for further evaluation. * Interval development of a small fat-containing umbilical hernia and tiny fat-containing left inguinal hernia compared with CT abdomen/pelvis from 09/15/2025; no evidence of incarceration or strangulation. Postsurgical changes in the right inguinal region are compatible with prior hernia repair, if confirmed clinically. * Post cholecystectomy status without biliary dilatation and mild atherosclerotic change of the abdominal aorta. /[place]
--- NOTE | 2025-10-18 00:56 | HMCIMG ---
EXAM: MRA NECK CLINICAL HISTORY: Dizziness. TECHNIQUE: MRI angiography of the neck without contrast has been performed including 3D reconstructions following department protocol. Exam performed without IV contrast administration. Evaluation of the stenosis was performed based on NASCET criteria. IV CONTRAST: None. COMPARISON: None specified. FINDINGS: AORTIC ARCH AND GREAT VESSEL ORIGINS: No significant stenosis at the visualized portions. RIGHT COMMON CAROTID ARTERY: No occlusion, significant stenosis or dissection. RIGHT INTERNAL CAROTID ARTERY: No occlusion, significant stenosis or dissection. LEFT COMMON CAROTID ARTERY: No occlusion, significant stenosis or dissection. LEFT INTERNAL CAROTID ARTERY: No occlusion, significant stenosis or dissection. RIGHT VERTEBRAL ARTERY: Dominant. No occlusion, significant stenosis or dissection. LEFT VERTEBRAL ARTERY: No occlusion, significant stenosis or dissection. MAJOR ARTERIAL SYSTEM OF THE NECK: All arteries in the neck are patent. No evidence of acute injury at the major arterial system of the neck. MAJOR ARTERIAL SYSTEM OF THE HEAD: No evidence of occlusion at the visualized portions of the major arterial system of the head. IMPRESSION: 1. No evidence of stenosis or occlusion of the major arteries in the neck. 2. Right vertebral artery dominance. /[place]
--- NOTE | 2025-10-18 01:03 | HMCIMG ---
EXAM: MR BRAIN WITHOUT CONTRAST CLINICAL HISTORY: Dizziness. TECHNIQUE: Multiplanar and multisequence MR images of the brain were obtained without IV contrast. CONTRAST: None. COMPARISON: Prior CT scan of the head without contrast dated 10/17/2025. FINDINGS: BRAIN PARENCHYMA: There is prominence of the sulcal spaces, basal cisterns with ex vacuo dilatation of the ventricles, suggestive of age appropriate neuroparenchymal volume loss. There is periventricular and deep white matter T2/FLAIR hyperintensities, suggestive of small vessel ischemic changes. No foci of diffusion restriction or susceptibility artifacts on gradient sequences. There is asymmetry of the bilateral lateral ventricles, the left side appearing larger than the right. No acute infarct. Normal sella turcica, pituitary gland, infundibular stalk, optic chiasm and hypothalamus. The internal auditory canals are patent. No mass effect or midline shift. CSF SPACES: Prominence of the sulcal spaces, basal cisterns with ex vacuo dilatation of the ventricles, suggestive of age appropriate neuroparenchymal volume loss. There is asymmetry of the bilateral lateral ventricles, the left side appearing larger than the right. There is no hydrocephalus. INTRACRANIAL HEMORRHAGE: No evidence of intracranial hemorrhage. VASCULAR SYSTEM: Normal flow voids in the major intracranial circulation. CALVARIUM AND VISUALIZED UPPER CERVICAL SPINE: Unremarkable. PARANASAL SINUSES AND MASTOID AIR CELLS: Clear. ORBITS: Both globes, extraocular muscles, optic nerves and retrobulbar fat appear unremarkable. IMPRESSION: 1. No acute infarct, hemorrhage, mass or midline shift. 2. Age appropriate neuroparenchymal volume loss with small vessel ischemic changes. 3. Asymmetry of the bilateral lateral ventricles, the left side appearing larger than the right, likely a normal variant. 4. In comparison with the prior CT scan of the head dated October 17, 2025, there is no interval change. /[place]
[2025-10-18 04:49] LABS: NUCLEATED RED BLOOD CELLS 0.0 % (0.0-0.19); PLATELET COUNT (AUTO) 192.0 K/uL (130-400); RED BLOOD CELL COUNT(AUTO) 3.57 MIL/uL (4.00-5.50); RED CELL DISTRIBUTION WIDTH 12.9 % (11.0-15.5); WHITE BLOOD COUNT (AUTO) 10.7 K/uL (4.8-10.8)
[2025-10-18 05:23] LABS: ASPARTATE AMINOTRANSFERASE 27.0 U/L (10-37); CREATININE 0.7 mg/dL (0.5-1.0); GLOMERULAR FILTR. RATE CALC 90.0 mL/min (>90); GLUCOSE,RANDOM 97.0 mg/dL (70-105); SODIUM SERUM 142.0 mmol/L (136-145); TOTAL PROTEIN, SERUM 5.8 g/dL (6.0-8.3); UREA NITROGEN, BLOOD 14.0 mg/dL (7-18)
--- NOTE | 2025-10-18 07:30 | CONS ---
CONSULTATION NOTE Date of Service: Oct 18, 2025 Reason for Consultation: Eval of dizziness Requesting Physician: hospitalist HISTORY OF PRESENT ILLNESS: 75-year-old lady with a past medical history remarkable for HTN, HLD sciatica, who presented to ED with dizziness, with associated nausea and vomiting. Pt also mentions having cough with clear phlegm, with associated congestion and postnasal drainage. The pt mentions having a history of dizziness, the first episode happened several years ago. She also mentions having the same episode about 1 month ago and now before this admission. She describes it as a room spinning sensation that is associated with nausea. Triggered by head movement and lying down. Improved by staying still. Now her symptoms are better. MRI brain neg for stroke. In ED stat chest x-ray was done showed no acute, CT of the head did not reveal any intracranial abnormality. Her CBC is significant for elevated [place] [address], chemistry did not reveal any electrolyte or kidney dysfunction. Her COVID tests was negative however patient tested positive with flu a. Patient was subsequently started on Tamiflu and IV ceftriaxone. REVIEW OF SYSTEMS CONSTITUTIONAL: Denies fever, chills, or fatigue. HEAD/FACE: No signs of trauma. EENT: Denies eye pain, blurred vision, double vision, or light sensitivity. RESPIRATORY: Denies shortness of breath, cough, wheezing CARDIOVASCULAR: Denies chest pain, palpitation, syncope GASTROINTESTINAL/ABDOMINAL: Denies abdominal pain, constipation, diarrhea, nausea or vomiting GENITOURINARY: Denies dysuria or hematuria. MUSCULOSKELETAL: Denies joint pain, tenderness, or trauma. INTEGUMENTARY: Denies rash or itchiness NEUROLOGICAL/PSYCH: Denies anxiety, depression, heat or cold intolerance. PAST MEDICAL HISTORY: as above PAST SURGICAL HISTORY: as above PAST SOCIAL HISTORY: none FAMILY HISTORY: none Coded Allergies: iodine (Unverified Allergy, Unknown, 05/12/25) PHYSICAL EXAM EYES: Anicteric. Pupils equal and reactive. HENT: No oral thrush seen, moist Oral mucosa NECK: Supple, no JVD or thyromegaly. LUNGS: Good air entry. No rales, no rhonchi. CARDIOVASCULAR: S1, S2 regular. No murmur heard. ABDOMEN: Soft, non tender, bowel sounds present, no organomegaly CENTRAL NERVOUS SYSTEM: Awake, alert, oriented x 3. No focal deficits. SKIN: No rashes, no swelling. LYMPHATICS: No peripheral lymphadenopathy MUSCULOSKELETAL: No joint swelling, erythema or tenderness. EXTREMITIES: No cyanosis or clubbing BACK: No deformity, no pressure ulcer. GENITOURINARY: No dysuria or hematuria Vital Sign (Last 24 Hours) 10/17/25 10/18/25 10/18/25 20:00 01:00 04:04 Temp 97.5 Pulse 68 Resp 18 B/P (MAP) 155/60 Pulse Ox 99 O2 Delivery Room Air O2 Flow Rate 0 FiO2 21 Intake & Output (last 24hrs) 10/17/25 10/17/25 10/18/25 15:00 23:00 07:00 Output Total 600 ml Balance -600 ml LABS: Laboratory: Test 10/18/25 05:30 10/18/25 04:35 10/17/25 05:09 10/16/25 18:05 Range/Units Whole Blood Glucose 92 70-110 MG/DL White Blood Count 10.7 4.8-10.8 K/uL Red Blood Count 3.57 L 4.00-5.50 MIL/uL Hemoglobin 11.5 L 12.0-16.0 g/dL Hematocrit 33.0 L 36-48 % Mean Corpuscular Volume 92.4 79-99 fL Mean Corpuscular Hemoglobin 32.2 27.0-33.0 pg Mean Corpuscular Hemoglobin Concent 34.8 32.0-36.0 g/dL Red Cell Distribution Width 12.9 11.0-15.5 % Platelet Count 192 130-400 K/uL Mean Platelet Volume 9.9 7.5-10.5 fL Nucleated Red Blood Cells 0.0 0.0-0.19 % Sodium Level 142 136-145 mmol/L Potassium Level 3.8 3.5-5.1 mmol/L Chloride Level 108 101-111 mmol/L Carbon Dioxide Level 26 21-32 mmol/L Blood Urea Nitrogen 14 7-18 mg/dL Creatinine 0.7 0.5-1.0 mg/dL Glomerular Filtration Rate Calc 90 >90 mL/min Random Glucose 97 70-105 mg/dL Total Calcium 8.2 L 8.5-10.1 mg/dL Total Bilirubin 0.3 # 0.2-1.0 mg/dL Aspartate Amino Transf (AST/SGOT) 27 10-37 U/L Alanine Aminotransferase (ALT/SGPT) 28 12-78 U/L Alkaline Phosphatase 64 50-136 U/L Total Protein 5.8 L 6.0-8.3 g/dL Albumin 3.0 L 3.5-5.0 g/dL Magnesium Level 2.00 1.80-2.40 mg/dL Lipase 87 H 16-77 U/L Influenza Type A Antigen Positive For Type A *A NEGATIVE Influenza Type B Antigen Negative For Type B NEGATIVE SARS-CoV-2 Antigen (Rapid) PRESUMPTIVE NEGATIVE NEGATIVE Test 10/16/25 18:03 10/16/25 14:57 10/16/25 13:25 Range/Units Lactic Acid Level 1.7 0.8-2.5 mmol/L Urine Color COLORLESS YELLOW Urine Appearance CLEAR CLEAR Urine pH 7.5 5.0-8.0 Urine Specific [place] 1.008 1.001-1.031 Urine Protein NEGATIVE NEGATIVE mg/dL Urine Glucose (UA) NEGATIVE NEGATIVE mg/dL Urine Ketones 10 H NEGATIVE mg/dL Urine Occult Blood +- (TRACE) H NEGATIVE Urine Nitrate NEGATIVE NEGATIVE Urine Bilirubin NEGATIVE NEGATIVE mg/dL Urine Urobilinogen 0.2 0.2-1.0 mg/dL Urine Leukocyte Esterase NEGATIVE NEGATIVE [place]/uL Urine RBC 2-5 H 0-1 /HPF Urine WBC 0-1 0-1 /HPF Urine Squamous Epithelial Cells RARE 0-2 /HPF Urine Bacteria None None Seen /HPF Immature Granulocyte % (Auto) 2.3 H 0-1 % Neutrophils (%) (Auto) 56.0 40.0-77.0 % Lymphocytes (%) (Auto) 34.1 21.0-51.0 % Monocytes (%) (Auto) 6.2 3.0-13.0 % Eosinophils (%) (Auto) 0.9 0.0-8.0 % Basophils (%) (Auto) 0.5 0.0-5.0 % Neutrophils # (Auto) 8.6 H 1.8-7.7 K/uL Lymphocytes # (Auto) 5.3 H 1.0-4.8 K/uL Monocytes # (Auto) 1.0 0.1-1.0 K/uL Eosinophils # (Auto) 0.14 0.00-0.70 K/uL Basophils # (Auto) 0.08 0.00-0.20 K/uL Absolute Immature Granulocyte (auto 0.35 0-1 K/uL Hemoglobin A1c 5.4 4.0-6.0 % Estimated Average Glucose (eAG) 108 70-126 mg/dL Troponin I High Sensitivity 6 4-50 ng/L DIAGNOSTICS / RADIOLOGY: MRI brain w/o contrast: negative ASSESSMENT / PLAN: 1).- Peripheral vertigo - 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 MRI brain negative. Continue meclizine 25mg PRN. The pt will benefit from ENT evaluation and vestibular therapy. This can be done as outpatient. Continue with fall precautions. Thank you for your consultation. I will sign off. ESTIVEN RUEDA MD Oct 18, 2025 07:30
[2025-10-18] MEDS: ENOXAPARIN SODIUM 40 MG/0.4 ML SYRINGE SQ SCH (08:02)
[2025-10-18] MEDS: MULTIVIT MINERALS PO SCH (08:11)
[2025-10-18] MEDS: FOLIC ACID PO SCH (08:11)
--- NOTE | 2025-10-18 10:15 | NUR ---
Interviewed patient who stated she no longer has dizziness or feels the room spinning. She reports she has had this problem before. As per neurologist, she has vertigo with room spinning. Educated patient to request ENT referral as well as OP PT for possible vestibular rehab. Patient voiced understanding. Otherwise is walking in her room independently. DC PT.
[2025-10-18] MEDS ORDERED: OSEL75CA17 PO (11:10)
--- NOTE | 2025-10-18 11:17 | DS ---
[facility] DISCHARGE SUMMARY Date Patient Seen: Oct 18, 2025 Time of Visit: 11:17 Supervising Physician: Dr. Octavio Cornelius Primary Care Physician: Dr. Mojica Consult: Dr. Sutton, Neurology PROBLEM LIST: Dizziness, CT of the head negative for intracranial pathology, POA Flu A positive, currently on Tamiflu and ceftriaxone, no flu shot, POA Severe sepsis, likely from respiratory infection, POA Lactic acidosis, POA Hypokalemia, likely from episodic vomiting, POA Intractable nausea and vomiting, POA Hypertension, POA Hyperlipidemia, POA History of sciatica PLAN: Isolation precautions Continue ceftriaxone and Tamiflu Pending MRI to be read Treat fever aggressively Zofran for nausea / vomiting CBC, CMP, magnesium level daily Bilateral SCDs Heart healthy diet Incentive spirometry DuoNeb q.6 as needed for shortness of breaths HOSPITAL COURSE: HPI (per admitting provider) The patient was treated for the following problems: ACTIVE PROBLEM LIST FOR THE HOSPITALIZATION: CHRONIC PROBLEMS: continue previous management per PCP unless otherwise indicated ELECT EQUIP MAINT ENG FINDINGS/RECOMMENDATIONS: [ ] PROCEDURES: as mentioned above DISCHARGE MEDICATIONS: Pt hemodynamically stable and afebrile at time of discharge. PCP notified of patients admission, hospital course and discharge. PHYSICAL EXAM: GENERAL: alert, awake oriented x 3 HEENT: EOMI, Sclera non icteric, has nasal congestion NECK: Supple, no JVD, trachea midline LUNGS: Clear breath sounds bilaterally. No wheezes HEART: Regular rate and rhythm. Normal S1 and S2, without murmurs ABD: Abdomen soft, nontender. Bowel sounds present EXT: No clubbing cyanosis or edema NEURO: Alert and oriented to person,place, follows commands FOLLOW-UP: Follow-up with PCP in 2-3 days RECOMMENDATIONS: See Discharge Instructions This case was seen and discussed with my supervising physician. More than 30 minutes spent on discharge process, including evaluation of the patient, discussion with nursing staff, medication reconciliation and follow-up appointments LISBETH DAVID APRN Oct 18, 2025 11:17
--- NOTE | 2025-10-18 12:12 | DS ---
[facility] DISCHARGE SUMMARY Date Patient Seen: Oct 18, 2025 Time of Visit: 12:11 Supervising Physician: Dr. Octavio Cornelius Primary Care Physician: Dr. Mojica Consult: Dr. Sutton, Neurology PROBLEM LIST: Dizziness, CT of the head negative for intracranial pathology, resolved Flu A positive, no flu shot, discharged with Tamiflu Severe sepsis, likely from respiratory infection, resolved Lactic acidosis, resolved Hypokalemia, likely from episodic vomiting, resolved Intractable nausea and vomiting, resolved Hypertension Hyperlipidemia History of sciatica HPI (per admitting provider) 75-year-old female with past medical history of sciatica, hypertension, hyperlipidemia who presented to ED via private vehicle with complaint of dizziness, with associated nausea and vomiting, there is also complaint of cough with clear phlegm, with associated congestion and postnasal drainage. There is no associated confusion, or fever. There is also no associated exposure to sick person. Per patient was evaluated earlier by PCP for dizziness, unsure of possible etiology. In ED stat chest x-ray was done showed no acute, CT of the head did not reveal any intracranial abnormality. Her CBC is significant for elevated W[place] [address], chemistry did not reveal any electrolyte or kidney dysfunction. Her COVID tests was negative however patient tested positive with flu a. Patient was subsequently started on Tamiflu and IV ceftriaxone. At present patient is currently hemodynamically stable, on room air with appropriate oxygen saturation, denies any headache, chest pain, shortness of breath, abdominal pain, diarrhea, or fever. Patient denies any smoking, alcohol intake, or illicit drug use. HOSPITAL COURSE: Patient was evaluated on this admission for complaint of dizziness, with associated nausea and vomiting, there is also complaint of cough with clear phlegm, with congestion and postnasal drainage. Patient denied exposure to any sick persons. Patient was recently started on Meclizine for vertigo by her PCP. She however feels the medications makes its worse. Patient was thoroughly evaluated. Today patient is in good spirits. She is awake, alert, and oriented x 3. She denies any chest pain, shortness of breath, cough, nausea, vomiting, or dizziness. She states she is ready to go home. WBC 10.7, Hgb 11.5, Hct 33. MRI of brain showed no acute infarct, hemorrhage, mass or midline shift. Patient will be discharge home continue with home medication and Tamiflu for 3 more days. PLAN: Isolation precautions Continue with Tamiflu prescription Follow neurology recommendations Continue home medications Heart healthy diet Follow up with PCP in 3-5 days. Pt hemodynamically stable and afebrile at time of discharge. PCP notified of patients admission, hospital course and discharge. New Medications: Oseltamivir Phosphate (Oseltamivir Phosphate) 75 Mg Capsule 1 CAP PO BID for 3 Days, #6 CAP 0 Refills Continued Medications: Meclizine HCl (Meclizine HCl) 12.5 Mg Tablet 1 TAB PO TID PRN for DIZZINESS for 30 Days, #90 TAB 0 Refills Metoprolol Succinate (Metoprolol Succinate) 25 Mg Tab.er.24h 25 MG PO BID, TAB Multivit-Minerals/Folic Acid (Centrum Adults Multigummy) 12 Mcg Tab.chew 12 MCG PO DAILY, TAB.CHEW Ondansetron (Ondansetron Odt) 4 Mg Tab.rapdis 4 MG PO TID PRN for NAUSEA/VOMITING, TAB PHYSICAL EXAM: GENERAL: alert, awake oriented x 3 HEENT: EOMI, Sclera non icteric, has nasal congestion NECK: Supple, no JVD, trachea midline LUNGS: Clear breath sounds bilaterally. No wheezes HEART: Regular rate and rhythm. Normal S1 and S2, without murmurs ABD: Abdomen soft, nontender. Bowel sounds present EXT: No clubbing cyanosis or edema NEURO: Alert and oriented to person,place, follows commands FOLLOW-UP: Follow-up with PCP in 3-5 days RECOMMENDATIONS: See Discharge Instructions This case was seen and discussed with my supervising physician. More than 30 minutes spent on discharge process, including evaluation of the patient, discussion with nursing staff, medication reconciliation and follow-up appointments LISBETH DAVID APRN Oct 18, 2025 12:12
--- NOTE | 2025-10-18 14:30 | NUR ---
HOME MEDICATIONS HOME MEDS RETURNED TO PATIENT. PATIENT CONFIRMED CORRECT MEDS.
--- NOTE | 2025-10-18 14:47 | NUR ---
DISCHARGE DISCHARGE ORDERS OBTAINED FOR PATIENT TO BE DISCHARGED HOME. DISCHARGE INSTRUCTIONS AND DOCUMENTATION GIVEN TO PATIENT AT BEDSIDE. VOICED UNDERSTANDING. IV DISCONTINUED BY SUSANA, SALES REPRESENTATIVE [employer], CATHETER INTACT, NO S/S OF INFECTION NOTED TO SITE. PATIENT TOLERATED WELL. BANDS REMOVED PRIOR TO DISCHARGE. PATIENT LEFT VIA WHEELCHAIR ACCOMPANIED BY DAUGHTER. NO S/S OF DISTRESS NOTED.
== END 2025-10-18 14:30 | disposition home or self-care (01) ==
LOC: EDH 12:56 → EDHIP 15:51 → 4DH 10-17 13:19
PROVIDERS: ADMIT Internal Medicine Pulmonary Disease; ATTEND Internal Medicine Pulmonary Disease
DX: A41.9 Sepsis, unspecified organism (principal); E87.20 Acidosis, unspecified; R42 Dizziness and giddiness; E87.6 Hypokalemia; I12.9 Hypertensive chronic kidney disease with stage 1 through stage 4 chronic kidney disease, or unspecified chronic kidney disease; E11.22 Type 2 diabetes mellitus with diabetic chronic kidney disease; E11.65 Type 2 diabetes mellitus with hyperglycemia; E78.00 Pure hypercholesterolemia, unspecified; E86.0 Dehydration; R11.2 Nausea with vomiting, unspecified; N18.30 Chronic kidney disease, stage 3 unspecified; J10.1 Influenza due to other identified influenza virus with other respiratory manifestations; R65.20 Severe sepsis without septic shock; Z78.9 Other specified health status; Z90.710 Acquired absence of both cervix and uterus; Z98.890 Other specified postprocedural states; Z79.899 Other long term (current) drug therapy; Z20.822 Contact with and (suspected) exposure to COVID-19
CPT/HCPCS: 96361 ×3; 96365; 96366 ×2; 96375; 99285; 83036; 83735 ×2; 84484; 80048; 85025; 87040 ×2; 87804 ×2; 82948 ×7; 83605 ×2; 87426; 81001; 36415 ×3; 71045; 70450; 70551; 70547; 93005; 94664; 80053 ×2; 83690; 85027 ×2; 74176; G0378 ×46; J7030; J2919; J0696 ×2; J2405; J1650